=== PATIENT | female | born 2000 | race Caucasian/White ===

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

== ENCOUNTER 2019-01-13 18:13 | Inpatient (IN) | payer MEDICAID ==
--- NOTE | 2019-01-13 18:27 | EDM.PDOC ---
ED HPI GENERAL MEDICAL PROBLEM - General Chief Complaint: Abdominal Pain Stated Complaint: PANCREATITIS SYMPTOMS Time Seen by Provider: 01/13/19 18:25 Source of Information: Reports: Patient History Limitations: Reports: No Limitations - History of Present Illness INITIAL COMMENTS - FREE TEXT/NARRATIVE: pt does have a history of pancreatis. She feels her symptoms tonight are similar. Onset: Other (pt did do some drinking last nite-- wine coolers and today she is very ill. ) Duration: Hour(s): Location: Reports: Abdomen Associated Symptoms: Reports: Loss of Appetite, Nausea/Vomiting, Other (pain in epigastric area. 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 ) HEENT: Reports: No Symptoms Respiratory: Reports: No Symptoms Cardiovascular: Reports: No Symptoms Endocrine: Reports: No Symptoms GI/Abdominal: Reports: Abdominal Pain, Decreased Appetite, Nausea : Reports: No Symptoms Musculoskeletal: Reports: No Symptoms Skin: Reports: No Symptoms Neurological: Reports: No Symptoms ED EXAM, GI/ABD - Physical Exam Exam: See Below Text/Narrative:: Pt arrived with mid abdomanal pain. She has recently been hospitalized twice for pancreatitis. She does admit to doing some drinking last nite. She does seem reluctant to admit to how much she is drinking. Exam Limited By: No Limitations General Appearance: Alert, Anxious, Moderate Distress, Other (pt is rating her pain at a 6. ) Ears: Normal TMs Nose: Normal Inspection Throat/Mouth: Normal Inspection Head: Atraumatic Neck: Normal Inspection Respiratory/Chest: No Respiratory Distress Cardiovascular: Regular Rate, Rhythm GI/Abdominal Exam: Other ( severe mid abdomanal pain. She is tender to palpate in the mid abdoman. ) (Female) Exam: Deferred Rectal (Female) Exam: Deferred Back Exam: Normal Inspection Extremities: Normal Inspection Neurological: Alert, Oriented, Normal Cognition Psychiatric: Normal Affect Course - Vital Signs Last Recorded V/S: Last Vital Signs Temp 36.1 C 01/13/19 18:23 Pulse 77 01/13/19 18:23 Resp 16 01/13/19 18:23 BP 128/72 01/13/19 18:23 Pulse Ox 97 01/13/19 18:23 - Orders/Labs/Meds Orders: Active Orders 24 hr Category Date Time Status Abdomen Ltd [US] Stat Exams 01/13/19 19:02 Ordered UA W/MICROSCOPIC [URIN] Urgent Lab 01/13/19 18:25 Ordered Sodium Chloride 0.9% [Normal Saline] 1,000 ml Med 01/13/19 18:45 Active IV ASDIRECTED Medication Orders Sodium Chloride (Normal Saline) 1,000 mls @ 999 mls/hr IV ASDIRECTED LUCIA Last Admin: 01/13/19 19:01 Dose: 999 mls/hr Labs: Laboratory Tests 01/13/19 01/13/19 01/13/19 Range/Units 18:30 18:30 18:30 WBC 10.4 (4.5-11.0) K/uL RBC 4.23 (3.30-5.50) M/uL Hgb 12.8 (12.0-15.0) g/dL Hct 39.0 (36.0-48.0) % MCV 92 (80-98) fL MCH 30 (27-31) pg MCHC 33 (32-36) % Plt Count 341 (150-400) K/uL Neut % (Auto) 69 H (36-66) % Lymph % (Auto) 21 L (24-44) % [place] % (Auto) 8 H (2-6) % Eos % (Auto) 2 (2-4) % Baso % (Auto) 0 (0-1) % Sodium 140 (140-148) mmol/L Potassium 3.8 (3.6-5.2) mmol/L Chloride 104 (100-108) mmol/L Carbon Dioxide 27 (21-32) mmol/L Anion Gap 9.5 (5.0-14.0) mmol/L BUN 6 L (7-18) mg/dL Creatinine 0.7 (0.6-1.0) mg/dL Est Cr Clr Drug Dosing 121.01 mL/min Estimated GFR (MDRD) > 60 (>60) Glucose 96 (74-106) mg/dL Calcium 8.9 (8.5-10.1) mg/dL Total Bilirubin 0.4 D (0.2-1.0) mg/dL AST 37 (15-37) U/L ALT 54 (12-78) U/L Alkaline Phosphatase 62 (46-116) U/L Total Protein 7.3 (6.4-8.2) g/dL Albumin 3.8 (3.4-5.0) g/dL Globulin 3.5 (2.3-3.5) g/dL Albumin/Globulin Ratio 1.1 L (1.2-2.2) Triglycerides (15-150) mg/dL Amylase (25-115) U/L Lipase 8795 H (73-393) U/L Ethyl Alcohol mg/dL 01/13/19 01/13/19 01/13/19 Range/Units 18:30 18:36 18:43 WBC (4.5-11.0) K/uL RBC (3.30-5.50) M/uL Hgb (12.0-15.0) g/dL Hct (36.0-48.0) % MCV (80-98) fL MCH (27-31) pg MCHC (32-36) % Plt Count (150-400) K/uL Neut % (Auto) (36-66) % Lymph % (Auto) (24-44) % [place] % (Auto) (2-6) % Eos % (Auto) (2-4) % Baso % (Auto) (0-1) % Sodium (140-148) mmol/L Potassium (3.6-5.2) mmol/L Chloride (100-108) mmol/L Carbon Dioxide (21-32) mmol/L Anion Gap (5.0-14.0) mmol/L BUN (7-18) mg/dL Creatinine (0.6-1.0) mg/dL Est Cr Clr Drug Dosing mL/min Estimated GFR (MDRD) (>60) Glucose (74-106) mg/dL Calcium (8.5-10.1) mg/dL Total Bilirubin (0.2-1.0) mg/dL AST (15-37) U/L ALT (12-78) U/L Alkaline Phosphatase (46-116) U/L Total Protein (6.4-8.2) g/dL Albumin (3.4-5.0) g/dL Globulin (2.3-3.5) g/dL Albumin/Globulin Ratio (1.2-2.2) Triglycerides 101 (15-150) mg/dL Amylase 510 H (25-115) U/L Lipase (73-393) U/L Ethyl Alcohol < 3 mg/dL Meds: Medications Generic Name Dose Route Start Last Admin Trade Name Freq PRN Reason Stop Dose Admin Sodium Chloride 1,000 mls @ 999 mls/hr 01/13/19 18:45 01/13/19 19:01 Normal Saline IV 999 mls/hr ASDIRECTED LUCIA Administration Discontinued Medications Generic Name Dose Route Start Last Admin Trade Name Freq PRN Reason Stop Dose Admin Ondansetron HCl 4 mg 01/13/19 18:44 01/13/19 19:01 Zofran IVPUSH 01/13/19 18:45 4 mg ONETIME ONE Administration - Re-Assessments/Exams Free Text/Narrative Re-Assessment/Exam: 01/13/19 19:08 pt has a elevated lipase and amylase. She has normal triglycerides. She had a cat scan of the abdoman recently wich did not show gb disease. Will obtain a US of the abdoman. Departure - Departure Time of Disposition: 19:10 Disposition: Admitted As Inpatient 65 Condition: Fair Clinical Impression: Dehydration Pancreatitis Qualifiers: Chronicity: acute Pancreatitis type: drug induced Acute pancreatitis complication: unspecified Qualified Code(s): K85.30 - Drug induced acute pancreatitis without necrosis or infection - Discharge Information Referrals: Harper De La Rosa DO [Primary Care Provider] - Forms: ED Department Discharge Care Plan Goals: admit to [facility] - My Orders Last 24 Hours: My Active Orders 01/13/19 18:25 UA W/MICROSCOPIC [URIN] Urgent 01/13/19 18:45 Sodium Chloride 0.9% [Normal Saline] 1,000 ml IV ASDIRECTED 01/13/19 19:02 Abdomen Ltd [US] Stat - Assessment/Plan Last 24 Hours: My Active Orders 01/13/19 18:25 UA W/MICROSCOPIC [URIN] Urgent 01/13/19 18:45 Sodium Chloride 0.9% [Normal Saline] 1,000 ml IV ASDIRECTED 01/13/19 19:02 Abdomen Ltd [US] Stat
[2019-01-13] MEDS ORDERED: Ondansetron 4 MG/2 ML SDV IVPUSH ONE (18:44)
[2019-01-13] MEDS ORDERED: Sodium Chloride 0.9% 1,000 ML IV SCH ×2 (18:45→20:04)
--- NOTE | 2019-01-13 19:55 | PCM.HP.2 ---
H&P History of Present Illness - General Date of Service: 01/13/19 Admit Problem/Dx: Admission Diagnosis/Problem Admission Diagnosis/Problem Acute pancreatitis Source of Information: Patient, Family (Boyfriend) History Limitations: Reports: No Limitations - History of Present Illness Initial Comments - Free Text/Narative: Chief complaint: abdominal pain with nausea and vomiting This is a 18 year old female present to the ER for evaluation of symptoms. She reports yesterday drank 6 Hard [place] Lemonades, otherwise reports hadn't drank in a few months. Smokes THC, denies other drug use. She had a normal day, ate supper this evening, can't remember what she ate, then at 6 pm developed a sharp ache in upper abdomen with nausea and vomiting. denies fever or chills. Symptoms similar to last pancreatitis. Onset of Symptoms: Reports: Sudden Symptom Onset Date: 01/13/19 Symptom Onset Time: 18:00 Duration of Symptoms: Reports: Hour(s):, Constant Location: Reports: Abdomen Quality: Reports: Ache, Same as Previous Episode, Sharp Severity: Severe Improves with: Reports: None Worsens with: Reports: None Context: Reports: Other (hx of admission on 12-18-2018 for acute pancreatits Lipase 45,193 discharge Lipase 731) Associated Symptoms: Reports: Loss of Appetite, Nausea/Vomiting Abdomen Pain Score (Numeric/FACES): 6 - Related Data Allergies/Adverse Reactions: Allergies Allergy/AdvReac Type Severity Reaction Status Date / Time No Known Allergies Allergy Verified 01/13/19 18:27 Home Medications: Home Meds Citalopram Hydrobromide [Celexa] 40 mg PO DAILY 12/18/18 [History] Spironolactone [Aldactone] 50 mg PO BID 12/18/18 [History] metFORMIN [Glucophage XR] 500 mg PO DAILY 12/18/18 [History] Acetaminophen [Tylenol] 1,000 mg PO Q4H PRN 12/22/18 [History] Past Medical History HEENT History: Reports: Impaired Vision Gastrointestinal History: Reports: Pancreatitis PARTS MANAGER History: Reports: Polycystic Ovaries Psychiatric History: Reports: Anxiety Dermatologic History: Reports: Psoriasis - Past Surgical History Head Surgeries/Procedures: Reports: None HEENT Surgical History: Reports: None Dermatological Surgical History: Reports: None Social & Family History - Tobacco Use Smoking Status *Q: Never Smoker - Caffeine Use Caffeine Use: Reports: None - Recreational Drug Use Recreational Drug Use: Yes Recreational Drug Type: Reports: Marijuana/Hashish - Living Situation & Occupation Living situation: Reports: with Significant Other Occupation: Unemployed (lives with Boyfriend between [place] and [place]. Not working, no children.) H&P Review of Systems - Review of Systems: Review Of Systems: See Below General: Reports: Decreased Appetite HEENT: Reports: Glasses Pulmonary: Reports: No Symptoms Cardiovascular: Reports: No Symptoms Gastrointestinal: Reports: Abdominal Pain, Anorexia, Nausea, Vomiting Genitourinary: Reports: No Symptoms Musculoskeletal: Reports: No Symptoms Skin: Reports: No Symptoms Psychiatric: Reports: No Symptoms Neurological: Reports: No Symptoms Hematologic/Lymphatic: Reports: No Symptoms Immunologic: Reports: No Symptoms Exam - Exam Exam: See Below - Vital Signs Vital Signs: Last Vital Signs Temp 36.1 C 01/13/19 19:05 Pulse 86 01/13/19 19:05 Resp 18 01/13/19 19:05 BP 115/77 01/13/19 19:05 Pulse Ox 97 01/13/19 19:05 Weight: 109.6 kg - Exam Quality Assessment: DVT Prophylaxis General: Alert, Oriented, Cooperative, Sedated HEENT: PERRLA, Hearing Intact, Mucosa Moist & [place], Nares Patent, Normal Nasal Septum, Posterior Pharynx Clear, Conjunctiva Clear, EOMI, EACs Clear, TMs Clear Neck: Supple, Trachea Midline, 2 Lungs: Clear to Auscultation, Normal Respiratory Effort Cardiovascular: Regular Rate, Regular Rhythm GI/Abdominal Exam: Normal Bowel Sounds, Soft, Non-Tender, No Organomegaly, No Distention, No Abnormal Bruit, No Mass, Pelvis Stable (Female) Exam: Deferred Rectal (Female) Exam: Deferred Back Exam: Normal Inspection, Full Range of Motion, NT Extremities: Normal Inspection, Normal Range of Motion, Non-Tender, No Pedal Edema, Normal Capillary Refill Skin: Warm, Dry, Intact Neurological: Cranial Nerves Intact, Reflexes Equal Bilateral Neuro Extensive - Mental Status: Alert, Oriented x3, Normal Mood/Affect, Normal Cognition Neuro Extensive - Motor, Sensory, Reflexes: CN II-XII Intact, Normal Gait, Normal Reflexes Psychiatric: Alert, Normal Affect, Normal Mood - Patient Data Lab Results Last 24 hrs: Laboratory Results - last 24 hr 01/13/19 01/13/19 01/13/19 Range/Units 18:30 18:30 18:30 WBC 10.4 (4.5-11.0) K/uL RBC 4.23 (3.30-5.50) M/uL Hgb 12.8 (12.0-15.0) g/dL Hct 39.0 (36.0-48.0) % MCV 92 (80-98) fL MCH 30 (27-31) pg MCHC 33 (32-36) % Plt Count 341 (150-400) K/uL Neut % (Auto) 69 H (36-66) % Lymph % (Auto) 21 L (24-44) % Mercer % (Auto) 8 H (2-6) % Eos % (Auto) 2 (2-4) % Baso % (Auto) 0 (0-1) % Sodium 140 (140-148) mmol/L Potassium 3.8 (3.6-5.2) mmol/L Chloride 104 (100-108) mmol/L Carbon Dioxide 27 (21-32) mmol/L Anion Gap 9.5 (5.0-14.0) mmol/L BUN 6 L (7-18) mg/dL Creatinine 0.7 (0.6-1.0) mg/dL Est Cr Clr Drug Dosing 121.01 mL/min Estimated GFR (MDRD) > 60 (>60) Glucose 96 (74-106) mg/dL Calcium 8.9 (8.5-10.1) mg/dL Total Bilirubin 0.4 D (0.2-1.0) mg/dL AST 37 (15-37) U/L ALT 54 (12-78) U/L Alkaline Phosphatase 62 (46-116) U/L Total Protein 7.3 (6.4-8.2) g/dL Albumin 3.8 (3.4-5.0) g/dL Globulin 3.5 (2.3-3.5) g/dL Albumin/Globulin Ratio 1.1 L (1.2-2.2) Triglycerides (15-150) mg/dL Amylase (25-115) U/L Lipase 8795 H (73-393) U/L Ethyl Alcohol mg/dL 01/13/19 01/13/19 01/13/19 Range/Units 18:30 18:36 18:43 WBC (4.5-11.0) K/uL RBC (3.30-5.50) M/uL Hgb (12.0-15.0) g/dL Hct (36.0-48.0) % MCV (80-98) fL MCH (27-31) pg MCHC (32-36) % Plt Count (150-400) K/uL Neut % (Auto) (36-66) % Lymph % (Auto) (24-44) % Mercer % (Auto) (2-6) % Eos % (Auto) (2-4) % Baso % (Auto) (0-1) % Sodium (140-148) mmol/L Potassium (3.6-5.2) mmol/L Chloride (100-108) mmol/L Carbon Dioxide (21-32) mmol/L Anion Gap (5.0-14.0) mmol/L BUN (7-18) mg/dL Creatinine (0.6-1.0) mg/dL Est Cr Clr Drug Dosing mL/min Estimated GFR (MDRD) (>60) Glucose (74-106) mg/dL Calcium (8.5-10.1) mg/dL Total Bilirubin (0.2-1.0) mg/dL AST (15-37) U/L ALT (12-78) U/L Alkaline Phosphatase (46-116) U/L Total Protein (6.4-8.2) g/dL Albumin (3.4-5.0) g/dL Globulin (2.3-3.5) g/dL Albumin/Globulin Ratio (1.2-2.2) Triglycerides 101 (15-150) mg/dL Amylase 510 H (25-115) U/L Lipase (73-393) U/L Ethyl Alcohol < 3 mg/dL Result Diagrams: 01/13/19 18:30 01/13/19 18:30 - Problem List (1) Acute pancreatitis without infection or necrosis SNOMED Code(s): 514579956 ICD Code: K85.90 - ACUTE PANCREATITIS WITHOUT NECROSIS OR INFECTION, UNSP Status: Acute Priority: High Current Visit: Yes Qualifiers: Pancreatitis type: drug induced Qualified Code(s): K85.30 - Drug induced acute pancreatitis without necrosis or infection (2) Depression SNOMED Code(s): 22261839 ICD Code: F32.9 - MAJOR DEPRESSIVE DISORDER, SINGLE EPISODE, UNSPECIFIED Status: Acute Priority: Low Current Visit: No Qualifiers: Depression Type: major depressive disorder Major depression recurrence: unspecified whether recurrent Problem List Initiated/Reviewed/Updated: Yes Orders Last 24hrs: Active Orders 24 hr Category Date Time Status Patient Status Manage Transfer [TRANSFER] Routine ADT 01/13/19 19:34 Active Abdomen Ltd [US] Stat Exams 01/13/19 19:02 Ordered DRUG SCREEN, URINE [URCHEM] Stat Lab 01/13/19 19:20 Ordered HCG QUALITATIVE,URINE [URCHEM] Stat Lab 01/13/19 19:20 Ordered UA W/MICROSCOPIC [URIN] Urgent Lab 01/13/19 18:25 Ordered Sodium Chloride 0.9% [Normal Saline] 1,000 ml Med 01/13/19 18:45 Active IV ASDIRECTED Resuscitation Status Routine Resus Stat 01/13/19 19:35 Ordered Medication Orders Sodium Chloride (Normal Saline) 1,000 mls @ 999 mls/hr IV ASDIRECTED LUCIA Last Admin: 01/13/19 19:01 Dose: 999 mls/hr Assessment/Plan Comment:: ASSESSMENT AND PLAN - PANCREATITIS- Likely secondary to recent alcohol use, has stopped control since last hospital admission. Labs CBC wbc 10.4, hemoglobin 12.8, hemocrit 39.0 , Chemistries normal range, Amylase 510, Lipase 8,795. Imaging - ultrasound abdomen - impression resolution of previously seen acute pancreatitis with normal appearance of the pancreatic head and body. No sign of biliary ductal dilatation, cholelithiasis or acute cholecystitis. Nonspecific fluid-filled structure located to the right of midline measuring 7.4 x 3.1 x 6.1 cm, not clearly evident on the previous CT. It is possible that is is a pancreatic pseudocyst. Will plan to admit for further care and treatment. Vital signs 36.1- 86-18 b/p 115/77 o2 sat 97% room air. Ms. Chowdhury and her Boyfriend agree with plan of care. -IV fluids Normal Saline 125ml/hr -IV pain and nausea medications -NPO -Am Labs cbc with diff, BMP, Lipase Depression - no concerns at this time. Medication controls symptoms. -Celexa 40 mg po daily Maintenance issues - - DVT prophylaxis - enoxaparin - GI prophylaxis - PPI - Nutrition - regular - Ribera catheter - not indicated -Nicotine dependence - not required CODE STATUS - full Admission justification - This patient will be admitted for inpatient services and is medically appropriate meeting medical necessity for inpatient admission as outlined in my documentation. I reasonably expect the patient will require inpatient services that span a period time over 2 midnights. I reasonably expect this patient to be discharged or transferred within 96 hours after admission to the [facility]. Disposition - anticipate discharge home after the hospital stay Primary care physician - Dr Harper De La Rosa Hospitalist - Darinel Peace M.D. - Mortality Measure Prognosis:: Good
[2019-01-13] MEDS ORDERED: Albuterol 0.083% 2.5 MG/3 ML Neb Soln NEB PRN (20:04)
[2019-01-13] MEDS ORDERED: Docusate Sodium 100 MG Cap PO PRN (20:04)
[2019-01-13] MEDS ORDERED: Ondansetron 4 MG/2 ML SDV IV PRN (20:04)
[2019-01-13] MEDS ORDERED: LORazepam 2 MG/ML SDV IV PRN (20:04)
--- NOTE | 2019-01-13 21:18 | CRLUS ---
INDICATION: Pancreatitis COMPARISON: CT of the abdomen from 12/18/2018 TECHNIQUE: Ultrasound examination of the right upper quadrant was performed. FINDINGS: There is normal appearance of the gallbladder, with no sign of cholelithiasis or acute cholecystitis. There is no sign of gallbladder wall thickening or pericholecystic fluid. A sonographic [place] sign was not present. The common bile duct is top normal in caliber at 6 mm. The pancreatic head and body were examined, and these are normal in appearance. The previously seen fluid around the pancreatic head and body is no longer evident, consistent with resolution of acute pancreatitis. The abdominal aorta is normal in caliber. The liver shows no sign of mass or contour abnormality, and there is no sign of ascites. The right kidney is unremarkable. To the right of midline, there is a tubular, anechoic structure without increased color Doppler flow or peristalsis. This measures 7.4 x 3.1 x 6.1 centimeters. No similar appearing structure seen on the previous CT. This could be a pancreatic pseudocyst. IMPRESSION: Resolution of previously seen acute pancreatitis, with normal appearance of the pancreatic head and body. No sign of biliary ductal dilatation, cholelithiasis, or acute cholecystitis. Nonspecific fluid-filled structure located to the right of midline measuring 7.4 x 3.1 x 6.1 centimeters, not clearly evident on the previous CT. It is possible that this is a pancreatic pseudocyst. Dictated by Johny Dominique MD @ Jan 13 2019 9:11PM Signed by Dr. Johny Dominique @ Jan 13 2019 9:17PM
[2019-01-13] MEDS: HYDROmorphone 1 MG/ML Syringe IVPUSH PRN (23:10)
[2019-01-14] MEDS: HYDROmorphone 1 MG/ML Syringe IVPUSH PRN ×3 (05:18→23:19)
[2019-01-14] MEDS: Enoxaparin 40 MG/0.4 ML Syringe SUBCUT SCH (09:57)
[2019-01-14] MEDS: Citalopram 20 MG Tab PO SCH (09:57)
[2019-01-14] MEDS ORDERED: Sodium Chloride 0.9% 10 ML Syringe FLUSH ONE ×2 (13:14→13:15)
[2019-01-14] MEDS ORDERED: Sodium Chloride 0.9% 100 ML IV SCH (13:15)
[2019-01-14] MEDS ORDERED: Iopamidol 612 MG/ML 100 ML Bottle IV SCH ×2 (13:15)
--- NOTE | 2019-01-14 13:18 | PCM.PN ---
- General Info Date of Service: 01/14/19 Subjective Update: Ms. Chowdhury is a 18-year-old woman who was admitted through the emergency department last night with nausea and abdominal pain secondary to recurrent pancreatitis. She was hospitalized at this facility earlier this month with acute pancreatitis, possible etiology was thought be secondary to her control medications. She had felt well since that admission when she developed acute onset of pain and nausea yesterday. She has not taken control medication since her last admission. She did have 6 beers on the evening prior to admission. She feels significantly improved this morning abdominal pain has resolved except to palpation and she is had no further nausea or vomiting. Lipase level was significantly improved this morning but remains elevated from normal range. Functional Status: Reports: Tolerating Diet, Ambulating, Urinating - Review of Systems General: Denies: Fever, Chills Pulmonary: Reports: No Symptoms Cardiovascular: Reports: No Symptoms Gastrointestinal: Reports: No Symptoms - Patient Data Vitals - Most Recent: Last Vital Signs Temp 97.4 F 01/14/19 08:38 Pulse 87 01/14/19 08:38 Resp 16 01/14/19 08:38 BP 105/60 01/14/19 08:38 Pulse Ox 96 01/14/19 08:38 Weight - Most Recent: 241 lb I&O - Last 24 Hours: Intake & Output 01/13/19 01/14/19 01/14/19 22:59 06:59 14:59 Intake Total 949 Output Total 350 Balance -350 949 Lab Results Last 24 Hours: Laboratory Results - last 24 hr 01/13/19 01/13/19 01/13/19 Range/Units 18:30 18:30 18:30 WBC 10.4 (4.5-11.0) K/uL RBC 4.23 (3.30-5.50) M/uL Hgb 12.8 (12.0-15.0) g/dL Hct 39.0 (36.0-48.0) % MCV 92 (80-98) fL MCH 30 (27-31) pg MCHC 33 (32-36) % Plt Count 341 (150-400) K/uL Neut % (Auto) 69 H (36-66) % Lymph % (Auto) 21 L (24-44) % Mercer % (Auto) 8 H (2-6) % Eos % (Auto) 2 (2-4) % Baso % (Auto) 0 (0-1) % Sodium 140 (140-148) mmol/L Potassium 3.8 (3.6-5.2) mmol/L Chloride 104 (100-108) mmol/L Carbon Dioxide 27 (21-32) mmol/L Anion Gap 9.5 (5.0-14.0) mmol/L BUN 6 L (7-18) mg/dL Creatinine 0.7 (0.6-1.0) mg/dL Est Cr Clr Drug Dosing 121.01 mL/min Estimated GFR (MDRD) > 60 (>60) Glucose 96 (74-106) mg/dL Calcium 8.9 (8.5-10.1) mg/dL Total Bilirubin 0.4 D (0.2-1.0) mg/dL AST 37 (15-37) U/L ALT 54 (12-78) U/L Alkaline Phosphatase 62 (46-116) U/L Total Protein 7.3 (6.4-8.2) g/dL Albumin 3.8 (3.4-5.0) g/dL Globulin 3.5 (2.3-3.5) g/dL Albumin/Globulin Ratio 1.1 L (1.2-2.2) Triglycerides (15-150) mg/dL Amylase (25-115) U/L Lipase 8795 H (73-393) U/L Urine Color (YELLOW) Urine Appearance (CLEAR) Urine pH (5.0-8.0) Ur Specific [place] (1.008-1.030) Urine Protein (NEGATIVE) mg/dL Urine Glucose (UA) (NEGATIVE) mg/dL Urine Ketones (NEGATIVE) mg/dL Urine Occult Blood (NEGATIVE) Urine Nitrite (NEGATIVE) Urine Bilirubin (NEGATIVE) Urine Urobilinogen (0.2-1.0) EU/dL Ur Leukocyte Esterase (NEGATIVE) Urine RBC (0-5) Urine WBC (0-5) Ur Epithelial Cells Amorphous Sediment Urine Bacteria Urine Mucus Urine HCG, Qual Urine Opiates Screen (NEGATIVE) Ur Oxycodone Screen (NEGATIVE) Urine Methadone Screen (NEGATIVE) Ur Propoxyphene Screen (NEGATIVE) Ur Barbiturates Screen (NEGATIVE) Ur Tricyclics Screen (NEGATIVE) Ur Phencyclidine Scrn (NEGATIVE) Ur Amphetamine Screen (NEGATIVE) U Methamphetamines Scrn (NEGATIVE) Urine MDMA Screen (NEGATIVE) U Benzodiazepines Scrn (NEGATIVE) U Cocaine Metab Screen (NEGATIVE) U Marijuana (THC) Screen (NEGATIVE) Ethyl Alcohol mg/dL 01/13/19 01/13/19 01/13/19 Range/Units 18:30 18:36 18:43 WBC (4.5-11.0) K/uL RBC (3.30-5.50) M/uL Hgb (12.0-15.0) g/dL Hct (36.0-48.0) % MCV (80-98) fL MCH (27-31) pg MCHC (32-36) % Plt Count (150-400) K/uL Neut % (Auto) (36-66) % Lymph % (Auto) (24-44) % Mercer % (Auto) (2-6) % Eos % (Auto) (2-4) % Baso % (Auto) (0-1) % Sodium (140-148) mmol/L Potassium (3.6-5.2) mmol/L Chloride (100-108) mmol/L Carbon Dioxide (21-32) mmol/L Anion Gap (5.0-14.0) mmol/L BUN (7-18) mg/dL Creatinine (0.6-1.0) mg/dL Est Cr Clr Drug Dosing mL/min Estimated GFR (MDRD) (>60) Glucose (74-106) mg/dL Calcium (8.5-10.1) mg/dL Total Bilirubin (0.2-1.0) mg/dL AST (15-37) U/L ALT (12-78) U/L Alkaline Phosphatase (46-116) U/L Total Protein (6.4-8.2) g/dL Albumin (3.4-5.0) g/dL Globulin (2.3-3.5) g/dL Albumin/Globulin Ratio (1.2-2.2) Triglycerides 101 (15-150) mg/dL Amylase 510 H (25-115) U/L Lipase (73-393) U/L Urine Color (YELLOW) Urine Appearance (CLEAR) Urine pH (5.0-8.0) Ur Specific [place] (1.008-1.030) Urine Protein (NEGATIVE) mg/dL Urine Glucose (UA) (NEGATIVE) mg/dL Urine Ketones (NEGATIVE) mg/dL Urine Occult Blood (NEGATIVE) Urine Nitrite (NEGATIVE) Urine Bilirubin (NEGATIVE) Urine Urobilinogen (0.2-1.0) EU/dL Ur Leukocyte Esterase (NEGATIVE) Urine RBC (0-5) Urine WBC (0-5) Ur Epithelial Cells Amorphous Sediment Urine Bacteria Urine Mucus Urine HCG, Qual Urine Opiates Screen (NEGATIVE) Ur Oxycodone Screen (NEGATIVE) Urine Methadone Screen (NEGATIVE) Ur Propoxyphene Screen (NEGATIVE) Ur Barbiturates Screen (NEGATIVE) Ur Tricyclics Screen (NEGATIVE) Ur Phencyclidine Scrn (NEGATIVE) Ur Amphetamine Screen (NEGATIVE) U Methamphetamines Scrn (NEGATIVE) Urine MDMA Screen (NEGATIVE) U Benzodiazepines Scrn (NEGATIVE) U Cocaine Metab Screen (NEGATIVE) U Marijuana (THC) Screen (NEGATIVE) Ethyl Alcohol < 3 mg/dL 01/13/19 01/13/19 01/13/19 Range/Units 22:40 22:40 22:40 WBC (4.5-11.0) K/uL RBC (3.30-5.50) M/uL Hgb (12.0-15.0) g/dL Hct (36.0-48.0) % MCV (80-98) fL MCH (27-31) pg MCHC (32-36) % Plt Count (150-400) K/uL Neut % (Auto) (36-66) % Lymph % (Auto) (24-44) % Mercer % (Auto) (2-6) % Eos % (Auto) (2-4) % Baso % (Auto) (0-1) % Sodium (140-148) mmol/L Potassium (3.6-5.2) mmol/L Chloride (100-108) mmol/L Carbon Dioxide (21-32) mmol/L Anion Gap (5.0-14.0) mmol/L BUN (7-18) mg/dL Creatinine (0.6-1.0) mg/dL Est Cr Clr Drug Dosing mL/min Estimated GFR (MDRD) (>60) Glucose (74-106) mg/dL Calcium (8.5-10.1) mg/dL Total Bilirubin (0.2-1.0) mg/dL AST (15-37) U/L ALT (12-78) U/L Alkaline Phosphatase (46-116) U/L Total Protein (6.4-8.2) g/dL Albumin (3.4-5.0) g/dL Globulin (2.3-3.5) g/dL Albumin/Globulin Ratio (1.2-2.2) Triglycerides (15-150) mg/dL Amylase (25-115) U/L Lipase (73-393) U/L Urine Color Yellow (YELLOW) Urine Appearance Clear (CLEAR) Urine pH 7.0 (5.0-8.0) Ur Specific [place] 1.015 (1.008-1.030) Urine Protein Negative (NEGATIVE) mg/dL Urine Glucose (UA) Negative (NEGATIVE) mg/dL Urine Ketones Negative (NEGATIVE) mg/dL Urine Occult Blood Negative (NEGATIVE) Urine Nitrite Negative (NEGATIVE) Urine Bilirubin Negative (NEGATIVE) Urine Urobilinogen 1.0 (0.2-1.0) EU/dL Ur Leukocyte Esterase Trace H (NEGATIVE) Urine RBC 0-5 (0-5) Urine WBC 0-5 (0-5) Ur Epithelial Cells Few Amorphous Sediment Not seen Urine Bacteria Few Urine Mucus Not seen Urine HCG, Qual Negative Urine Opiates Screen Negative (NEGATIVE) Ur Oxycodone Screen Negative (NEGATIVE) Urine Methadone Screen Negative (NEGATIVE) Ur Propoxyphene Screen Negative (NEGATIVE) Ur Barbiturates Screen Negative (NEGATIVE) Ur Tricyclics Screen Negative (NEGATIVE) Ur Phencyclidine Scrn Negative (NEGATIVE) Ur Amphetamine Screen Negative (NEGATIVE) U Methamphetamines Scrn Negative (NEGATIVE) Urine MDMA Screen Negative (NEGATIVE) U Benzodiazepines Scrn Negative (NEGATIVE) U Cocaine Metab Screen Negative (NEGATIVE) U Marijuana (THC) Screen Presumptive positive H (NEGATIVE) Ethyl Alcohol mg/dL 01/14/19 01/14/19 01/14/19 Range/Units 05:30 05:30 09:02 WBC 8.8 (4.5-11.0) K/uL RBC 3.94 (3.30-5.50) M/uL Hgb 11.8 L (12.0-15.0) g/dL Hct 37.5 (36.0-48.0) % MCV 95 (80-98) fL MCH 30 (27-31) pg MCHC 32 (32-36) % Plt Count 312 (150-400) K/uL Neut % (Auto) 60 (36-66) % Lymph % (Auto) 29 (24-44) % Mercer % (Auto) 9 H (2-6) % Eos % (Auto) 2 (2-4) % Baso % (Auto) 0 (0-1) % Sodium 143 (140-148) mmol/L Potassium 3.8 (3.6-5.2) mmol/L Chloride 108 (100-108) mmol/L Carbon Dioxide 27 (21-32) mmol/L Anion Gap 8.0 (5.0-14.0) mmol/L BUN 4 L (7-18) mg/dL Creatinine 0.6 (0.6-1.0) mg/dL Est Cr Clr Drug Dosing 135.70 mL/min Estimated GFR (MDRD) > 60 (>60) Glucose 80 (74-106) mg/dL Calcium 8.3 L (8.5-10.1) mg/dL Total Bilirubin (0.2-1.0) mg/dL AST (15-37) U/L ALT (12-78) U/L Alkaline Phosphatase (46-116) U/L Total Protein (6.4-8.2) g/dL Albumin (3.4-5.0) g/dL Globulin (2.3-3.5) g/dL Albumin/Globulin Ratio (1.2-2.2) Triglycerides (15-150) mg/dL Amylase 395 H (25-115) U/L Lipase 3322 H (73-393) U/L Urine Color (YELLOW) Urine Appearance (CLEAR) Urine pH (5.0-8.0) Ur Specific [place] (1.008-1.030) Urine Protein (NEGATIVE) mg/dL Urine Glucose (UA) (NEGATIVE) mg/dL Urine Ketones (NEGATIVE) mg/dL Urine Occult Blood (NEGATIVE) Urine Nitrite (NEGATIVE) Urine Bilirubin (NEGATIVE) Urine Urobilinogen (0.2-1.0) EU/dL Ur Leukocyte Esterase (NEGATIVE) Urine RBC (0-5) Urine WBC (0-5) Ur Epithelial Cells Amorphous Sediment Urine Bacteria Urine Mucus Urine HCG, Qual Urine Opiates Screen (NEGATIVE) Ur Oxycodone Screen (NEGATIVE) Urine Methadone Screen (NEGATIVE) Ur Propoxyphene Screen (NEGATIVE) Ur Barbiturates Screen (NEGATIVE) Ur Tricyclics Screen (NEGATIVE) Ur Phencyclidine Scrn (NEGATIVE) Ur Amphetamine Screen (NEGATIVE) U Methamphetamines Scrn (NEGATIVE) Urine MDMA Screen (NEGATIVE) U Benzodiazepines Scrn (NEGATIVE) U Cocaine Metab Screen (NEGATIVE) U Marijuana (THC) Screen (NEGATIVE) Ethyl Alcohol mg/dL Med Orders - Current: Current Medications Albuterol (Proventil Neb Soln) 2.5 mg NEB Q4H PRN PRN Reason: Shortness Of Breath/wheezing Citalopram Hydrobromide (Celexa) 40 mg PO DAILY [facility] Last Admin: 01/14/19 09:57 Dose: 40 mg Docusate Sodium (Colace) 100 mg PO BID PRN PRN Reason: Constipation Enoxaparin Sodium (Lovenox) 40 mg SUBCUT DAILY [facility] Last Admin: 01/14/19 09:57 Dose: 40 mg Hydromorphone HCl (Dilaudid) 1 mg IVPUSH Q2H PRN PRN Reason: Abdominal Pain Last Admin: 01/14/19 05:18 Dose: 1 mg Sodium Chloride (Normal Saline) 100 mls @ 3 mls/sec IV ASDIRECTED LUCIA Sodium Chloride (Normal Saline) 85 mls @ 3 mls/sec IV ASDIRECTED LUCIA Iopamidol (Isovue-300 (61%)) 100 ml IV . DIRECTED LUCIA Iopamidol (Isovue-300 (61%)) 100 ml IV . DIRECTED LUCIA Lorazepam (Ativan) 1 mg IV Q6H PRN PRN Reason: Nausea/Vomiting Ondansetron HCl (Zofran) 4 mg IV Q4H PRN PRN Reason: Nausea/Vomiting Sodium Chloride (Saline Flush) 10 ml FLUSH ONETIME ONE Stop: 01/14/19 13:15 Sodium Chloride (Saline Flush) 10 ml FLUSH ONETIME ONE Stop: 01/14/19 13:16 Discontinued Medications Sodium Chloride (Normal Saline) 1,000 mls @ 999 mls/hr IV ASDIRECTED LUCIA Last Admin: 01/13/19 19:01 Dose: 999 mls/hr Sodium Chloride (Normal Saline) 1,000 mls @ 125 mls/hr IV ASDIRECTED LUCIA Last Admin: 01/14/19 05:06 Dose: 125 mls/hr Ondansetron HCl (Zofran) 4 mg IVPUSH ONETIME ONE Stop: 01/13/19 18:45 Last Admin: 01/13/19 19:01 Dose: 4 mg - Exam General: Alert, Oriented, Cooperative, No Acute Distress Lungs: Clear to Auscultation, Normal Respiratory Effort Cardiovascular: Regular Rate, Regular Rhythm, No Murmurs GI/Abdominal Exam: Soft, No Organomegaly, Tender. No: Distended, Guarding, Rigid, Rebound Extremities: Non-Tender, No Pedal Edema - Problem List Review Problem List Initiated/Reviewed/Updated: Yes - My Orders Last 24 Hours: My Active Orders 01/14/19 12:12 Abdomen Pelvis w Cont [CT] Stat 01/14/19 12:44 Convert IV to Saline Lock [OM.PC] Routine 01/14/19 13:14 Sodium Chloride 0.9% [Saline Flush] 10 ml FLUSH ONETIME ONE 01/14/19 13:15 Iopamidol [Isovue-300 (61%)] 100 ml IV . DIRECTED Iopamidol [Isovue-300 (61%)] 100 ml IV . DIRECTED Sodium Chloride 0.9% [Normal Saline] 100 ml IV ASDIRECTED Sodium Chloride 0.9% [Normal Saline] 85 ml IV ASDIRECTED Sodium Chloride 0.9% [Saline Flush] 10 ml FLUSH ONETIME ONE 01/14/19 Lunch Regular Diet [DIET] 01/15/19 05:00 LIPASE [CHEM] Timed - Plan Plan:: ASSESSMENT AND PLAN - PANCREATITIS- Likely secondary to recent alcohol use, has stopped control since last hospital admission. Symptomatically significantly improved since admission with good drop in lipase level. Ultrasound obtained last night shows evidence of peripancreatic fluid collection. CT scan obtained today shows developing loculation. -Regular diet -Saline lock IV -Discussed CT scan findings with gastroenterology -Outpatient follow-up with gastroenterology -IV pain and nausea medications -Repeat lipase level in a.m. Depression - no concerns at this time. Medication controls symptoms. -Celexa 40 mg po daily Maintenance issues - - DVT prophylaxis - enoxaparin - GI prophylaxis - PPI - Nutrition - regular - Ribera catheter - not indicated -Nicotine dependence - not required CODE STATUS - full Admission justification - This patient will be admitted for inpatient services and is medically appropriate meeting medical necessity for inpatient admission as outlined in my documentation. I reasonably expect the patient will require inpatient services that span a period time over 2 midnights. I reasonably expect this patient to be discharged or transferred within 96 hours after admission to the [facility] [place]. Disposition - anticipate discharge home after the hospital stay Primary care physician - Dr Harper De La Rosa Hospitalist - Darinel Peace M.D.
--- NOTE | 2019-01-14 14:08 | CRLCT ---
INDICATION: Pancreatitis, eval fluid collection noted on US INDICATION: Pancreatitis. TECHNIQUE: A CT volumetric acquisition was performed of the abdomen and pelvis during the intravenous infusion of 150 cc of Isovue-300 nonionic intravenous contrast. COMPARISON: CT abdomen pelvis dated 12/18/2018. FINDINGS: The lung bases remain clear. The patient`s liver demonstrates normal uniform enhancement with no evidence of bile duct dilatation. The spleen has uniform enhancement and there is a small accessory splenule located at the posterior inferior margin of the spleen. Since the prior exam the peripancreatic fluid has changed in appearance. The fluid stranding about the anterior margin has resolved and there has been partial loculation of fluid posteriorly which abuts the transverse portion of the duodenum. This developing loculated fluid collection measures 8.4 x 4.2 cm. There are no air bubbles within the fluid which would indicate superinfection. There is no evidence of hemorrhage or tissue necrosis within the inflamed pancreas. The kidneys and adrenal glands appear normal. There is no evidence of obstruction within the small intestine and colon. The appendix appears normal. There is trace amount of dependent fluid within the low pelvic cul de sac. Uterus and ovaries are normal size. The right ovary contains a dominant follicle. Urinary bladder appears normal. IMPRESSION: Since the prior exam the peripancreatic fluid has changed in appearance. The fluid stranding about the anterior margin has resolved and there has been partial loculation of fluid posteriorly which abuts the transverse portion of the duodenum Dictated by Gabriel Abdi MD @ 01/14/2019 2:08:17 PM Prelim Report By Dr. Gabriel Abdi @ 01/14/2019 2:08:22 PM Please note that all CT scans at this facility use dose modulation, iterative reconstruction, and/or weight-based dosing when appropriate to reduce radiation dose to as low as reasonably achievable. Dictated by: Gabrile Abdi MD @ 01/14/2019 19:02:49 (Electronically Signed)
[2019-01-15] MEDS: HYDROmorphone 1 MG/ML Syringe IVPUSH PRN ×2 (03:10→05:14)
[2019-01-15] MEDS: Citalopram 20 MG Tab PO SCH (09:22)
[2019-01-15] MEDS: Enoxaparin 40 MG/0.4 ML Syringe SUBCUT SCH (09:22)
--- NOTE | 2019-01-15 09:40 | PCM.DCSUM1 ---
Discharge Summary - Hospital Course Brief History: Ms. Grimm is a 18-year-old woman who was admitted through the emergency department with abdominal pain and nausea secondary to recurrent pancreatitis. - Discharge Data Discharge Date: 01/15/19 Discharge Disposition: Home, Self-Care 01 Condition: Good - Referral to Home Health Primary Care Physician: Harper De La Rosa DO - Discharge Diagnosis/Problem(s) (1) Pancreatic pseudocyst SNOMED Code(s): 794071519 ICD Code: K86.3 - PSEUDOCYST OF PANCREAS Status: Acute Current Visit: Yes (2) Dehydration SNOMED Code(s): 16335609 ICD Code: E86.0 - DEHYDRATION Status: Acute Current Visit: Yes (3) Pancreatitis SNOMED Code(s): 82737948 ICD Code: K85.90 - ACUTE PANCREATITIS WITHOUT NECROSIS OR INFECTION, UNSP Status: Acute Current Visit: Yes Qualifiers: Chronicity: acute Pancreatitis type: drug induced Acute pancreatitis complication: unspecified Qualified Code(s): K85.30 - Drug induced acute pancreatitis without necrosis or infection - Patient Summary/Data Hospital Course: Ms. Chowdhury is an 18-year-old woman who was admitted through the emergency department with nausea, vomiting, and supraumbilical abdominal pain, secondary to recurrent pancreatitis. She was hospitalized one month ago with similar symptoms and at that time was found to have evidence of pancreatitis with significant elevation in lipase level as well as peripancreatic inflammation and fluid seen on CT scan of the abdomen. She had experienced one prior episode of pancreatitis prior to that admission. On evaluation it was felt possible that either alcohol or control pills had contributed to the episode of pancreatitis. control pills were discontinued and she was warned against further alcohol use. She was hospitalized for a period of 4-5 days and improved during that time. Since then she has felt well until the day of admission when she noted recurrent symptoms of pain with nausea and vomiting. She had consumed approximately 6 beers on the evening prior to onset of her symptoms. On evaluation in the emergency department lipase level was elevated at 8000, ultrasound was obtained showing no evidence of gallbladder inflammation or stones within the gallbladder or ducts. There was no evidence of ductal dilatation. By the following morning her symptoms it improved significantly and her lipase level had decreased although was still elevated. CT scan of the abdomen and pelvis was obtained showing persistent peripancreatic fluid with partial loculation, no evidence of underlying necrosis or infection. White blood cell count was normal and she had no significant temperature elevations during hospitalization. By the morning of discharge symptoms totally resolved and her lipase level had normalized. CT scans were reviewed with the process design chemical engineer equipment application specialist at [facility] in [facility]. MRCP will be ordered as an outpatient and she will be scheduled for GI consult on an outpatient basis. She is again instructed to avoid all alcohol use. Activity will be as tolerated and she will resume her usual diet. She will be placed on Protonix 40 mg by mouth daily because of the potential pseudocyst. Follow-up appointment will be scheduled with primary care provider within one week. - Patient Instructions Diet: Usual Diet as Tolerated, No Alcoholic Beverages Activity: As Tolerated Other/Special Instructions: Outpaitient MRCP for eval of recurrent pancreatitis. FU appt w/ primary care provider w/in 1 wk. GI consult [facility] for eval of recurrent pancreatitis and pancreatic pseudocyst - Discharge Plan *PRESCRIPTION DRUG MONITORING PROGRAM REVIEWED*: Not Applicable *COPY OF PRESCRIPTION DRUG MONITORING REPORT IN PATIENT STEVEN: Not Applicable Prescriptions/Med Rec: Pantoprazole Sodium [Protonix] 40 mg PO DAILY #30 tablet. Home Medications: Home Meds Citalopram Hydrobromide [Celexa] 40 mg PO DAILY 12/18/18 [History] Spironolactone [Aldactone] 50 mg PO BID 12/18/18 [History] metFORMIN [Glucophage XR] 500 mg PO DAILY 12/18/18 [History] Acetaminophen [Tylenol] 1,000 mg PO Q4H PRN 12/22/18 [History] Pantoprazole Sodium [Protonix] 40 mg PO DAILY #30 tablet. 01/15/19 [Rx] Referrals: Harper De La Rosa DO [Primary Care Provider] - 01/21/19 1:30 pm - Discharge Summary/Plan Comment DC Time >30 min.: No - Patient Data Vitals - Most Recent: Last Vital Signs Temp 95.3 F L 01/15/19 03:00 Pulse 80 01/15/19 03:00 Resp 18 01/15/19 03:00 BP 114/78 01/15/19 03:00 Pulse Ox 96 01/15/19 03:00 Weight - Most Recent: 241 lb I&O - Last 24 hours: Intake & Output 01/14/19 01/15/19 01/15/19 22:59 06:59 14:59 Intake Total 1200 Balance 1200 Lab Results - Last 24 hrs: Laboratory Results - last 24 hr 01/15/19 01/15/19 Range/Units 04:00 04:00 Amylase 89 D (25-115) U/L Lipase 350 (73-393) U/L Med Orders - Current: Current Medications Albuterol (Proventil Neb Soln) 2.5 mg NEB Q4H PRN PRN Reason: Shortness Of Breath/wheezing Citalopram Hydrobromide (Celexa) 40 mg PO DAILY [facility] Last Admin: 01/15/19 09:22 Dose: 40 mg Docusate Sodium (Colace) 100 mg PO BID PRN PRN Reason: Constipation Enoxaparin Sodium (Lovenox) 40 mg SUBCUT DAILY [facility] Last Admin: 01/15/19 09:22 Dose: 40 mg Hydromorphone HCl (Dilaudid) 1 mg IVPUSH Q2H PRN PRN Reason: Abdominal Pain Last Admin: 01/15/19 05:14 Dose: 1 mg Lorazepam (Ativan) 1 mg IV Q6H PRN PRN Reason: Nausea/Vomiting Ondansetron HCl (Zofran) 4 mg IV Q4H PRN PRN Reason: Nausea/Vomiting Discontinued Medications Sodium Chloride (Normal Saline) 1,000 mls @ 999 mls/hr IV ASDIRECTED [facility] Last Admin: 01/13/19 19:01 Dose: 999 mls/hr Sodium Chloride (Normal Saline) 1,000 mls @ 125 mls/hr IV ASDIRECTED [facility] Last Admin: 01/14/19 05:06 Dose: 125 mls/hr Sodium Chloride (Normal Saline) 100 mls @ 3 mls/sec IV ASDIRECTED [facility] Stop: 01/14/19 13:16 Sodium Chloride (Normal Saline) 85 mls @ 3 mls/sec IV ASDIRECTED [facility] Stop: 01/14/19 13:16 Iopamidol (Isovue-300 (61%)) 100 ml IV . DIRECTED [facility] Stop: 01/14/19 13:16 Iopamidol (Isovue-300 (61%)) 100 ml IV . DIRECTED [facility] Stop: 01/14/19 13:16 Ondansetron HCl (Zofran) 4 mg IVPUSH ONETIME ONE Stop: 01/13/19 18:45 Last Admin: 01/13/19 19:01 Dose: 4 mg Sodium Chloride (Saline Flush) 10 ml FLUSH ONETIME ONE Stop: 01/14/19 13:15 Last Admin: 01/14/19 14:54 Dose: 10 ml Sodium Chloride (Saline Flush) 10 ml FLUSH ONETIME ONE Stop: 01/14/19 13:16 Last Admin: 01/14/19 14:54 Dose: Not Given - Exam General: Reports: Alert, Oriented, Cooperative, No Acute Distress Lungs: Reports: Clear to Auscultation, Normal Respiratory Effort Cardiovascular: Reports: Regular Rate, Regular Rhythm, No Murmurs GI/Abdominal Exam: Soft, No Organomegaly, Tender. No: Distended, Guarding, Rigid, Rebound
== END 2019-01-15 11:20 | disposition home or self-care (01) | DRG 439 ==
LOC: JP.ED 18:13 → JP.MS 19:34
PROVIDERS: ADMIT Hospitalist; ATTEND Hospitalist
DX: K85.30 Drug induced acute pancreatitis without necrosis or infection (principal); K86.3 Pseudocyst of pancreas; E86.0 Dehydration; H54.7 Unspecified visual loss; F41.9 Anxiety disorder, unspecified; F32.9 Major depressive disorder, single episode, unspecified; Z79.899 Other long term (current) drug therapy
CPT/HCPCS: 36415; 74177; 76705; 80048; 80053; 80305-QW; 81001; 81025; 82150; 83690; 84478; 85025; 96361; 96374; 99284-25; A9270-GY; G0480; J1170; J1650; J2405; J7030

== ENCOUNTER 2019-02-09 17:21 | Emergency (ER) | payer MEDICAID ==
[2019-02-09] MEDS ORDERED: Sodium Chloride 0.9% 10 ML Syringe FLUSH PRN (18:08)
[2019-02-09] MEDS ORDERED: Acetaminophen/HYDROcodone 325-5 MG Tab PO ONE (18:09)
[2019-02-09] MEDS ORDERED: Ondansetron 4 MG Tab.DIS PO ONE (18:09)
--- NOTE | 2019-02-09 18:15 | EDM.PDOC ---
ED HPI GENERAL MEDICAL PROBLEM - General Chief Complaint: Abdominal Pain Stated Complaint: ABD AND BACK PAIN Time Seen by Provider: 02/09/19 18:00 Source of Information: Reports: Patient, Old Records History Limitations: Reports: No Limitations - History of Present Illness INITIAL COMMENTS - FREE TEXT/NARRATIVE: 18 yo morbidly obese 18 yo female presents with epigastric pain for a few days. Has a pHx of pancreatitis and has been told in the past this was due to alcohol use. She denies any recent ETOH ingestion. Has not communicated with her primary about this pain. Ate a full meal before coming to the ER without any worsening of her sx's. Vomited once this morning and has had some mild ongoing nausea. No change in bowel or bladder fxn. Still has her gallbladder. No fever. No self tx. Was recently prescribed Protonix, but never picked up the Rx. Onset: Gradual Onset Date: 02/06/19 Duration: Day(s):, Getting Worse Location: Reports: Abdomen (epigastric) Quality: Reports: Ache Severity: Moderate Improves with: Reports: None Worsens with: Reports: Other (time) Context: Reports: Other (see HPI) Associated Symptoms: Reports: Nausea/Vomiting (emesis x one only). 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: Reports: Polycystic Ovaries Psychiatric History: Reports: Anxiety Endocrine/Metabolic History: Reports: Obesity/BMI 30+, Other (See Below) Other Endocrine/Metabolic History: pre diabetic Dermatologic History: Reports: Psoriasis - Past Surgical History HEENT Surgical History: Reports: None Dermatological Surgical History: Reports: None Social & Family History - Family History Psychiatric: Reports: Anxiety, Bipolar, Depression, Panic Attack Endocrine/Metabolic: Reports: Diabetes, type II Dermatologic: Reports: Psoriasis - Tobacco Use Smoking Status *Q: Never Smoker Second Hand Smoke Exposure: No - Caffeine Use Caffeine Use: Reports: Energy Drinks - Recreational Drug Use Recreational Drug Use: Yes Drug Use in Last 12 Months: Yes Recreational Drug Type: Reports: Marijuana/Hashish Recreational Drug Use Frequency: Daily - Living Situation & Occupation Living situation: Reports: with Significant Other Occupation: Unemployed (lives with Boyfriend between [place] and [place]. Not working, no children.) ED ROS GENERAL - Review of Systems Review Of Systems: See Below Constitutional: Reports: No Symptoms HEENT: Reports: No Symptoms Respiratory: Reports: No Symptoms Cardiovascular: Reports: No Symptoms GI/Abdominal: Reports: Abdominal Pain (epigastric), Nausea. Denies: Black Stool , Bloody Stool, Constipation, Diarrhea, Decreased Appetite, Difficulty Swallowing, Distension, Flatus, Hematemesis, Hematochezia, Melena, Vomiting : Reports: No Symptoms Musculoskeletal: Reports: No Symptoms Skin: Reports: No Symptoms Neurological: Reports: No Symptoms ED EXAM, GI/ABD - Physical Exam Exam: See Below Exam Limited By: No Limitations General Appearance: Alert, WD/WN, No Apparent Distress, Obese Eyes: Bilateral: Normal Appearance Ears: Normal External Exam, Normal Canal, Hearing Grossly Normal, Normal TMs Nose: Normal Inspection, Normal Mucosa, No Blood Throat/Mouth: Normal Inspection, Normal Lips, Normal Oropharynx, Normal Voice, No Airway Compromise Head: Atraumatic, Normocephalic Neck: Normal Inspection Respiratory/Chest: No Respiratory Distress, Lungs Clear, Normal Breath Sounds, No Accessory Muscle Use Cardiovascular: Regular Rate, Rhythm, No Edema GI/Abdominal Exam: Normal Bowel Sounds, Soft, No Distention, Tender (epigastric only). No: Non-Tender, Distended, Guarding, Rigid, Rebound, Abnormal Bowel Sounds, Hernia Back Exam: Normal Inspection. No: CVA Tenderness (R), CVA Tenderness (L) Extremities: Normal Inspection, Normal Range of Motion, Non-Tender, No Pedal Edema Neurological: Alert, Oriented, CN II-XII Intact, Normal Cognition, No Motor/ Sensory Deficits Psychiatric: Normal Affect, Normal Mood Skin Exam: Warm, Dry, Intact, Normal Color, No Rash Course - Vital Signs Last Recorded V/S: Last Vital Signs Temp 35.6 C 02/09/19 17:44 Pulse 104 H 02/09/19 17:44 Resp 16 02/09/19 17:44 BP 128/79 02/09/19 17:44 Pulse Ox 95 02/09/19 17:44 - Orders/Labs/Meds Orders: Active Orders 24 hr Category Date Time Status Sodium Chloride 0.9% [Saline Flush] Med 02/09/19 18:08 Active 10 ml FLUSH ASDIRECTED PRN Saline Lock Insert [OM.PC] Routine Oth 02/09/19 18:08 Ordered Medication Orders Sodium Chloride (Saline Flush) 10 ml FLUSH ASDIRECTED PRN PRN Reason: Keep Vein Open Last Admin: 02/09/19 18:21 Dose: 10 ml Labs: Laboratory Tests 02/09/19 02/09/19 Range/Units 18:18 18:18 WBC 7.8 (4.5-11.0) K/uL RBC 4.48 (3.30-5.50) M/uL Hgb 13.4 (12.0-15.0) g/dL Hct 41.2 (36.0-48.0) % MCV 92 (80-98) fL MCH 30 (27-31) pg MCHC 33 (32-36) % Plt Count 370 (150-400) K/uL Sodium 142 (140-148) mmol/L Potassium 3.3 L (3.6-5.2) mmol/L Chloride 106 (100-108) mmol/L Carbon Dioxide 23 (21-32) mmol/L Anion Gap 16.3 H (5.0-14.0) mmol/L BUN 5 L (7-18) mg/dL Creatinine 0.8 (0.6-1.0) mg/dL Est Cr Clr Drug Dosing 105.89 mL/min Estimated GFR (MDRD) > 60 (>60) Glucose 110 H (74-106) mg/dL Calcium 8.9 (8.5-10.1) mg/dL Lipase 136 (73-393) U/L Meds: Medications Generic Name Dose Route Start Last Admin Trade Name Freq PRN Reason Stop Dose Admin Sodium Chloride 10 ml 02/09/19 18:08 02/09/19 18:21 Saline Flush FLUSH 10 ml ASDIRECTED PRN Administration Keep Vein Open Discontinued Medications Generic Name Dose Route Start Last Admin Trade Name Paul PRN Reason Stop Dose Admin Hydrocodone Bitart/Acetaminophen 1 tab 02/09/19 18:09 02/09/19 18:21 [place] 325-5 Mg PO 02/09/19 18:10 1 tab ONETIME ONE Administration Ondansetron HCl 4 mg 02/09/19 18:09 02/09/19 18:22 Zofran Odt PO 02/09/19 18:10 4 mg ONETIME ONE Administration Departure - Departure Time of Disposition: 18:42 Disposition: Home, Self-Care 01 Condition: Fair Clinical Impression: Medical non-compliance, Marijuana smoker, Hypokalemia Gastritis Qualifiers: Gastritis type: unspecified gastritis Chronicity: acute Gastritis bleeding: without bleeding Qualified Code(s): K29.00 - Acute gastritis without bleeding - Discharge Information *PRESCRIPTION DRUG MONITORING PROGRAM REVIEWED*: No *COPY OF PRESCRIPTION DRUG MONITORING REPORT IN PATIENT STEVEN: No Instructions: Gastritis, Adult, [id number] Referrals: Harper De La Rosa DO [Primary Care Provider] - Forms: ED Department Discharge Additional Instructions: Take omeprazole or Protonix 40 mg daily. Follow up in the clinic for recheck. Eat more foods high in potassium. Take acetaminophen as needed for pain relief. Avoid aspirin, ibuprofen, Aleve, carbonated beverages, smoking, alcohol, or caffeine. You may benefit for the next week by using an antacid like Maalox 30 ml after meals and at bedtime(can use generic). - My Orders Last 24 Hours: My Active Orders 02/09/19 18:08 Sodium Chloride 0.9% [Saline Flush] 10 ml FLUSH ASDIRECTED PRN Saline Lock Insert [OM.PC] Routine - Assessment/Plan Last 24 Hours: My Active Orders 02/09/19 18:08 Sodium Chloride 0.9% [Saline Flush] 10 ml FLUSH ASDIRECTED PRN Saline Lock Insert [OM.PC] Routine
== END 2019-02-09 18:59 | disposition home or self-care (01) ==
LOC: JP.ED 17:21
DX: K29.00 Acute gastritis without bleeding (principal); Z91.14 Patient's other noncompliance with medication regimen; F12.90 Cannabis use, unspecified, uncomplicated; E87.6 Hypokalemia; F41.9 Anxiety disorder, unspecified; E66.9 Obesity, unspecified; Z68.39 Body mass index [BMI] 39.0-39.9, adult; Z79.899 Other long term (current) drug therapy
CPT/HCPCS: 36415; 80048; 83690; 85027; 99284; A9270; 99283

== ENCOUNTER 2019-09-25 18:52 | Emergency (ER) | payer MEDICAID ==
[2019-09-25] MEDS ORDERED: Lactated Ringers 1,000 ML IV ONE (19:36)
[2019-09-25] MEDS ORDERED: HYDROmorphone 0.5 MG/0.5 ML Syringe IVPUSH ONE ×2 (19:46→20:48)
[2019-09-25] MEDS ORDERED: Prochlorperazine 10 MG/2 ML SDV IVPUSH ONE (19:46)
--- NOTE | 2019-09-25 19:46 | EDM.PDOC ---
ED HPI GENERAL MEDICAL PROBLEM - General Chief Complaint: Abdominal Pain Stated Complaint: PANCREATIC ATTACK Time Seen by Provider: 09/25/19 19:30 Source of Information: Reports: Patient, Old Records History Limitations: Reports: No Limitations - History of Present Illness INITIAL COMMENTS - FREE TEXT/NARRATIVE: 18 yo female presents with about an hour's duration of upper abdominal pain like her prior attacks of pancreatitis. Has had nausea, but no vomiting. Stools are normal. Pain is currently 4/10. Says no one knows why she his having issues with her pancreas. Onset: Today, Gradual Onset Date: 09/25/19 Duration: Hour(s): (1), Constant Location: Reports: Abdomen (epigastric) Quality: Reports: Ache Severity: Moderate Improves with: Reports: None Worsens with: Reports: Other (? time) Context: Reports: Other (See HPI) Associated Symptoms: Reports: Loss of Appetite, Nausea/Vomiting (no vomiting). 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: Reports: Polycystic Ovaries Psychiatric History: Reports: Anxiety, Depression Endocrine/Metabolic History: Reports: Obesity/BMI 30+, Other (See Below) Other Endocrine/Metabolic History: pre diabetic Dermatologic History: Reports: Psoriasis - Past Surgical History Head Surgeries/Procedures: Reports: None HEENT Surgical History: Reports: None Dermatological Surgical History: Reports: None Social & Family History - Family History Psychiatric: Reports: Anxiety, Bipolar, Depression, Panic Attack Endocrine/Metabolic: Reports: Diabetes, type II Dermatologic: Reports: Psoriasis - Tobacco Use Smoking Status *Q: Never Smoker - Caffeine Use Caffeine Use: Reports: None - Recreational Drug Use Recreational Drug Use: Yes Drug Use in Last 12 Months: Yes Recreational Drug Type: Reports: Marijuana/Hashish Recreational Drug Use Frequency: Daily - Living Situation & Occupation Living situation: Reports: with Significant Other Occupation: Unemployed (lives with Boyfriend between [place] and [place]. Not working, no children.) ED ROS GENERAL - Review of Systems Review Of Systems: See Below Constitutional: Reports: Decreased Appetite HEENT: Reports: No Symptoms Respiratory: Reports: No Symptoms Cardiovascular: Reports: No Symptoms Endocrine: Reports: No Symptoms GI/Abdominal: Reports: Abdominal Pain, Nausea. Denies: Black Stool, Bloody Stool, Constipation, Diarrhea, Decreased Appetite, Distension, Flatus, Hematemesis, Hematochezia, Melena, Vomiting : Reports: No Symptoms Musculoskeletal: Reports: No Symptoms Skin: Reports: No Symptoms Neurological: Reports: No Symptoms Psychiatric: Reports: No Symptoms ED EXAM, GI/ABD - Physical Exam Exam: See Below Exam Limited By: No Limitations General Appearance: Alert, WD/WN, No Apparent Distress, Obese Eyes: Bilateral: Normal Appearance Ears: Normal External Exam, Normal Canal, Hearing Grossly Normal Nose: Normal Inspection, No Blood Throat/Mouth: Normal Inspection, Normal Lips, Normal Oropharynx, Normal Voice, No Airway Compromise Head: Atraumatic, Normocephalic Neck: Normal Inspection Respiratory/Chest: No Respiratory Distress, Lungs Clear, Normal Breath Sounds, No Accessory Muscle Use Cardiovascular: Regular Rate, Rhythm, No Edema GI/Abdominal Exam: Normal Bowel Sounds, Soft, No Distention, Tender (epigastrium). No: Non-Tender, Distended, Guarding, Rigid, Rebound Back Exam: Normal Inspection. No: CVA Tenderness (R), CVA Tenderness (L) Extremities: Normal Inspection, Normal Range of Motion, Non-Tender, No Pedal Edema. No: Pedal Edema Neurological: Alert, Oriented, CN II-XII Intact, Normal Cognition, No Motor/Sensory Deficits Psychiatric: Normal Affect, Normal Mood Skin Exam: Warm, Dry, Intact, Normal Color, No Rash Course - Vital Signs Last Recorded V/S: Last Vital Signs Temp 36.2 C 09/25/19 19:21 Pulse 82 09/25/19 19:21 Resp 14 09/25/19 19:21 BP 127/71 09/25/19 19:21 Pulse Ox 95 09/25/19 19:21 - Orders/Labs/Meds Orders: Active Orders 24 hr Category Date Time Status UA W/MICROSCOPIC [URIN] Stat Lab 09/25/19 21:04 Ordered Labs: Laboratory Tests 09/25/19 09/25/19 09/25/19 Range/Units 20:05 20:05 20:05 WBC 9.4 (4.5-11.0) K/uL RBC 4.83 (3.30-5.50) M/uL Hgb 14.4 (12.0-15.0) g/dL Hct 43.6 (36.0-48.0) % MCV 90 (80-98) fL MCH 30 (27-31) pg MCHC 33 (32-36) % Plt Count 331 (150-400) K/uL Sodium 140 (140-148) mmol/L Potassium 3.9 (3.6-5.2) mmol/L Chloride 102 (100-108) mmol/L Carbon Dioxide 26 (21-32) mmol/L Anion Gap 12.0 (5.0-14.0) mmol/L BUN 15 D (7-18) mg/dL Creatinine 1.0 (0.6-1.0) mg/dL Est Cr Clr Drug Dosing 84.71 mL/min Estimated GFR (MDRD) > 60 (>60) Glucose 96 (74-106) mg/dL Calcium 9.0 (8.5-10.1) mg/dL Lipase 181 (73-393) U/L Urine Opiates Screen (NEGATIVE) Ur Oxycodone Screen (NEGATIVE) Urine Methadone Screen (NEGATIVE) Ur Propoxyphene Screen (NEGATIVE) Ur Barbiturates Screen (NEGATIVE) Ur Tricyclics Screen (NEGATIVE) Ur Phencyclidine Scrn (NEGATIVE) Ur Amphetamine Screen (NEGATIVE) U Methamphetamines Scrn (NEGATIVE) Urine MDMA Screen (NEGATIVE) U Benzodiazepines Scrn (NEGATIVE) U Cocaine Metab Screen (NEGATIVE) U Marijuana (THC) Screen (NEGATIVE) 09/25/19 Range/Units 21:04 WBC (4.5-11.0) K/uL RBC (3.30-5.50) M/uL Hgb (12.0-15.0) g/dL Hct (36.0-48.0) % MCV (80-98) fL MCH (27-31) pg MCHC (32-36) % Plt Count (150-400) K/uL Sodium (140-148) mmol/L Potassium (3.6-5.2) mmol/L Chloride (100-108) mmol/L Carbon Dioxide (21-32) mmol/L Anion Gap (5.0-14.0) mmol/L BUN (7-18) mg/dL Creatinine (0.6-1.0) mg/dL Est Cr Clr Drug Dosing mL/min Estimated GFR (MDRD) (>60) Glucose (74-106) mg/dL Calcium (8.5-10.1) mg/dL Lipase (73-393) U/L Urine Opiates Screen Negative (NEGATIVE) Ur Oxycodone Screen Negative (NEGATIVE) Urine Methadone Screen Negative (NEGATIVE) Ur Propoxyphene Screen Negative (NEGATIVE) Ur Barbiturates Screen Negative (NEGATIVE) Ur Tricyclics Screen Negative (NEGATIVE) Ur Phencyclidine Scrn Negative (NEGATIVE) Ur Amphetamine Screen Negative (NEGATIVE) U Methamphetamines Scrn Negative (NEGATIVE) Urine MDMA Screen Negative (NEGATIVE) U Benzodiazepines Scrn Negative (NEGATIVE) U Cocaine Metab Screen Negative (NEGATIVE) U Marijuana (THC) Screen Presumptive positive H (NEGATIVE) Meds: Medications Discontinued Medications Generic Name Dose Route Start Last Admin Trade Name Freq PRN Reason Stop Dose Admin Hydromorphone HCl 0.5 mg 09/25/19 19:46 09/25/19 20:11 Dilaudid IVPUSH 09/25/19 19:47 0.5 mg ONETIME ONE Administration Hydromorphone HCl 0.5 mg 09/25/19 20:48 09/25/19 20:56 Dilaudid IVPUSH 09/25/19 20:49 0.5 mg ONETIME ONE Administration Lactated Ringer's 1,000 mls @ 1,000 mls/hr 09/25/19 19:36 09/25/19 20:05 Ringers, Lactated IV 09/25/19 20:35 1,000 mls/hr BOLUS ONE Administration Prochlorperazine Edisylate 5 mg 09/25/19 19:46 09/25/19 20:08 Compazine IVPUSH 09/25/19 19:47 5 mg ONETIME ONE Administration Departure - Departure Time of Disposition: 21:25 Disposition: Home, Self-Care 01 Condition: Fair Clinical Impression: Cannabinoid hyperemesis syndrome - Discharge Information *PRESCRIPTION DRUG MONITORING PROGRAM REVIEWED*: Not Applicable *COPY OF PRESCRIPTION DRUG MONITORING REPORT IN PATIENT STEVEN: Not Applicable Instructions: Cannabis Use Disorder Referrals: PCP,None [Primary Care Provider] - Forms: ED Department Discharge Additional Instructions: Use Zofran ODT as needed for nausea control. Clear liquids only until feeling better. Follow up with your provider next week for recheck. Acetaminophen 1000 mg every 6 hrs as needed for pain relief. Return as needed. Avoiding marijuana may prevent recurrence of this entity. Sepsis Event Note (ED) - Evaluation Sepsis Screening Result: No Definite Risk - Focused Exam Vital Signs: Vital Signs Temp Pulse Resp BP Pulse Ox 09/25/19 19:21 36.2 C 82 14 127/71 95 09/25/19 19:01 36.2 C 82 14 127/71 95 - My Orders Last 24 Hours: My Active Orders 09/25/19 21:04 UA W/MICROSCOPIC [URIN] Stat - Assessment/Plan Last 24 Hours: My Active Orders 09/25/19 21:04 UA W/MICROSCOPIC [URIN] Stat
== END 2019-09-25 21:56 | disposition home or self-care (01) ==
LOC: JP.ED 18:52
DX: F12.188 Cannabis abuse with other cannabis-induced disorder (principal); F41.9 Anxiety disorder, unspecified; F32.9 Major depressive disorder, single episode, unspecified; E66.9 Obesity, unspecified; Z79.899 Other long term (current) drug therapy
CPT/HCPCS: 36415; 80048; 80305; 81001; 83690; 85027; 96374; 96375; 96376; 99284; J0780; J1170; J7120

== ENCOUNTER 2019-10-01 20:58 | Emergency (ER) | payer MEDICAID ==
[2019-10-01] MEDS ORDERED: Prochlorperazine 10 MG/2 ML SDV IVPUSH ONE (22:10)
[2019-10-01] MEDS ORDERED: Lactated Ringers 1,000 ML IV ONE (22:10)
[2019-10-01] MEDS ORDERED: Ketorolac 30 MG/ML SDV IVPUSH ONE (22:11)
[2019-10-01] MEDS ORDERED: diphenhydrAMINE 50 MG/ML SDV IVPUSH ONE (22:11)
[2019-10-01] MEDS ORDERED: Dicyclomine 10 MG Cap PO ONE (22:14)
--- NOTE | 2019-10-01 22:23 | EDM.PDOC ---
ED HPI GENERAL MEDICAL PROBLEM - General Chief Complaint: Abdominal Pain Stated Complaint: SEVERE ABD PAIN Time Seen by Provider: 10/01/19 22:05 Source of Information: Reports: Patient, Old Records, RN History Limitations: Reports: No Limitations - History of Present Illness INITIAL COMMENTS - FREE TEXT/NARRATIVE: 18 yo female presents with nausea and epigastric pain. Sx's began about 2 hrs ago. No diarrhea. Has a pHx of both pancreatitis and hyperemesis cannabinoid syndrome. Her last visit about a week ago was for the latter. She states that she has not used marijuana since her last ER visit. She is not able to distinguish these two entities from each other. The pain from this does wax and wane since it began. Onset: Today Onset Date: 10/01/19 Onset Time: 20:30 Duration: Hour(s):, Waxing/Waning Location: Reports: Abdomen Quality: Reports: Ache Severity: Moderate Improves with: Reports: None Worsens with: Reports: Other (unknown) Context: Reports: Other (See HPI) Associated Symptoms: Reports: Nausea/Vomiting. 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: Other (see below) (none) Upper Abdomen Pain Score (Numeric/FACES): 1 - Related Data Allergies Allergy/AdvReac Type Severity Reaction Status Date / Time No Known Allergies Allergy Verified 10/01/19 21:34 Home Meds: Home Meds Citalopram Hydrobromide [Celexa] 40 mg PO DAILY 12/18/18 [History] Spironolactone [Aldactone] 50 mg PO BID 12/18/18 [History] metFORMIN [Glucophage XR] 500 mg PO DAILY 12/18/18 [History] Acetaminophen [Tylenol] 1,000 mg PO Q4H PRN 12/22/18 [History] Past Medical History HEENT History: Reports: Impaired Vision, Other (See Below) Other HEENT History: glasses Gastrointestinal History: Reports: Pancreatitis 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 Endocrine/Metabolic History: Reports: Obesity/BMI 30+, Other (See Below) Other Endocrine/Metabolic History: pre diabetic Dermatologic History: Reports: Psoriasis - Past Surgical History HEENT Surgical History: Reports: None Social & Family History - Family History Psychiatric: Reports: Anxiety, Bipolar, Depression, Panic Attack Endocrine/Metabolic: Reports: Diabetes, type II Dermatologic: Reports: Psoriasis - Tobacco Use Smoking Status *Q: Never Smoker Second Hand Smoke Exposure: No - Caffeine Use Caffeine Use: Reports: None - Alcohol Use Days Per Week of Alcohol Use: 0 - Recreational Drug Use Recreational Drug Use: Yes Drug Use in Last 12 Months: Yes Recreational Drug Type: Reports: Marijuana/Hashish Recreational Drug Use Frequency: Daily Recreational Drug Last Use: September 28 2019 - Living Situation & Occupation Living situation: Reports: with Significant Other Occupation: Unemployed (lives with Boyfriend between [place] and [facility] [employer]. Not working, no children.) ED ROS GENERAL - Review of Systems Review Of Systems: See Below Constitutional: Reports: No Symptoms HEENT: Reports: No Symptoms Respiratory: Reports: No Symptoms Cardiovascular: Reports: No Symptoms GI/Abdominal: Reports: Abdominal Pain, Nausea, Vomiting. Denies: Black Stool, Bloody Stool, Constipation, Diarrhea, Distension, Hematochezia, Melena : Reports: No Symptoms Musculoskeletal: Reports: No Symptoms Skin: Reports: No Symptoms Neurological: Reports: No Symptoms ED EXAM, GI/ABD - Physical Exam Exam: See Below Exam Limited By: No Limitations General Appearance: Alert, WD/WN, No Apparent Distress, Obese Eyes: Bilateral: Normal Appearance Ears: Normal External Exam, Normal Canal, Hearing Grossly Normal Nose: Normal Inspection, No Blood Throat/Mouth: Normal Inspection, Normal Lips, Normal Voice, No Airway Compromise Head: Atraumatic, Normocephalic Neck: Normal Inspection Respiratory/Chest: No Respiratory Distress, Lungs Clear, Normal Breath Sounds, No Accessory Muscle Use Cardiovascular: Regular Rate, Rhythm, No Edema GI/Abdominal Exam: No Distention, Tender (mild epigastric tenderness), Abnormal Bowel Sounds (decreased). No: Distended, Guarding, Rigid, Rebound Back Exam: Normal Inspection. No: CVA Tenderness (R), CVA Tenderness (L) Extremities: Normal Inspection, Normal Range of Motion, Non-Tender, No Pedal Edema. No: Pedal Edema Neurological: Alert, Oriented, CN II-XII Intact, Normal Cognition, No Motor/Sensory Deficits Psychiatric: Normal Affect, Normal Mood Skin Exam: Warm, Dry, Intact, Normal Color, No Rash Course - Vital Signs Last Recorded V/S: Last Vital Signs Temp 36.3 C 10/01/19 21:41 Pulse 79 10/01/19 21:41 Resp 20 10/01/19 21:41 BP 102/52 L 10/01/19 21:41 Pulse Ox 99 10/01/19 21:41 - Orders/Labs/Meds Labs: Laboratory Tests 10/01/19 Range/Units 22:25 Lipase 210 (73-393) U/L Meds: Medications Discontinued Medications Generic Name Dose Route Start Last Admin Trade Name Paul PRN Reason Stop Dose Admin Dicyclomine HCl 30 mg 10/01/19 22:14 10/01/19 22:42 Bentyl PO 10/01/19 22:15 30 mg ONETIME ONE Administration Diphenhydramine HCl 50 mg 10/01/19 22:11 10/01/19 22:50 Benadryl IVPUSH 10/01/19 22:12 50 mg ONETIME ONE Administration Lactated Ringer's 1,000 mls @ 1,000 mls/hr 10/01/19 22:10 10/01/19 22:48 Ringers, Lactated IV 10/01/19 23:09 1,000 mls/hr BOLUS ONE Administration Ketorolac Tromethamine 30 mg 10/01/19 22:11 10/01/19 22:52 Toradol IVPUSH 10/01/19 22:12 30 mg ONETIME ONE Administration Prochlorperazine Edisylate 10 mg 10/01/19 22:10 10/01/19 22:54 Compazine IVPUSH 10/01/19 22:11 10 mg ONETIME ONE Administration - Re-Assessments/Exams Free Text/Narrative Re-Assessment/Exam: 10/01/19 23:24 Feels better, would like to go home. Departure - Departure Time of Disposition: 23:30 Disposition: Home, Self-Care 01 Condition: Fair Clinical Impression: Cannabinoid hyperemesis syndrome - Discharge Information *PRESCRIPTION DRUG MONITORING PROGRAM REVIEWED*: No *COPY OF PRESCRIPTION DRUG MONITORING REPORT IN PATIENT STEVEN: No Referrals: Harper De La Rosa DO [Primary Care Provider] - Forms: ED Department Discharge Additional Instructions: Continue to abstain from marijuana use, it may take up to several weeks for this condition to resolve. Return as needed. Clear liquids only tonight, then advance diet as tolerated. Acetaminophen is OK to use if needed for pain relief. Sepsis Event Note (ED) - Evaluation Sepsis Screening Result: No Definite Risk - Focused Exam Vital Signs: Vital Signs Temp Pulse Resp BP Pulse Ox 10/01/19 21:41 36.3 C 79 20 102/52 L 99
== END 2019-10-01 23:35 | disposition home or self-care (01) ==
LOC: JP.ED 20:58
DX: R11.2 Nausea with vomiting, unspecified (principal); R10.13 Epigastric pain; F41.9 Anxiety disorder, unspecified; F32.9 Major depressive disorder, single episode, unspecified; E66.9 Obesity, unspecified; Z79.84 Long term (current) use of oral hypoglycemic drugs; Z79.899 Other long term (current) drug therapy
CPT/HCPCS: 36415; 83690; 96361; 96374; 96375; 99284; A9270; J0780; J1200; J1885; J7120; 99283

== ENCOUNTER 2019-11-10 19:50 | Emergency (ER) | payer MEDICAID ==
[2019-11-10] MEDS ORDERED: Alum Hydrox/Mag Hydrox/Simeth 15 ML, Lidocaine 2% 15 ML PO ONE ×2 (20:25)
--- NOTE | 2019-11-10 21:18 | EDM.PDOC ---
ED HPI GENERAL MEDICAL PROBLEM - General Chief Complaint: Abdominal Pain Stated Complaint: POSSIBLE PANCREATITIS Time Seen by Provider: 11/10/19 20:25 Source of Information: Reports: Patient, Family History Limitations: Reports: No Limitations - History of Present Illness INITIAL COMMENTS - FREE TEXT/NARRATIVE: 19-year-old female who has had abdominal pain off and on for the past 2 days, but it became particularly bad for the last 2 hours after eating. She has a history of pancreatitis and is concerned that it may be that. The pain is epigastric, no radiation to the back and no significant nausea or vomiting. She has not taken any antacids or any other measures. No fevers or chills. Onset: Sudden (Pain started fairly suddenly about 2 hours ago) Location: Reports: Abdomen Associated Symptoms: Reports: No Other Symptoms abd pain Pain Score (Numeric/FACES): 5 - Related Data Allergies Allergy/AdvReac Type Severity Reaction Status Date / Time No Known Allergies Allergy Verified 11/10/19 20:30 Home Meds: Home Meds Citalopram Hydrobromide [Celexa] 40 mg PO DAILY 12/18/18 [History] Spironolactone [Aldactone] 50 mg PO BID 12/18/18 [History] metFORMIN [Glucophage XR] 500 mg PO BEDTIME 12/18/18 [History] Acetaminophen [Tylenol] 1,000 mg PO Q4H PRN 12/22/18 [History] Past Medical History HEENT History: Reports: Impaired Vision, Other (See Below) Other HEENT History: glasses Gastrointestinal History: Reports: Pancreatitis 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 Endocrine/Metabolic History: Reports: Obesity/BMI 30+, Other (See Below) Other Endocrine/Metabolic History: pre diabetic Dermatologic History: Reports: Psoriasis - Past Surgical History Head Surgeries/Procedures: Reports: None HEENT Surgical History: Reports: None Social & Family History - Family History Psychiatric: Reports: Anxiety, Bipolar, Depression, Panic Attack Endocrine/Metabolic: Reports: Diabetes, type II Dermatologic: Reports: Psoriasis - Tobacco Use Smoking Status *Q: Never Smoker - Caffeine Use Caffeine Use: Reports: None - Recreational Drug Use Recreational Drug Use: Yes Recreational Drug Type: Reports: Marijuana/Hashish - Living Situation & Occupation Living situation: Reports: with Significant Other Occupation: Unemployed (lives with Boyfriend between [place] and [place]. Not working, no children.) ED ROS GENERAL - Review of Systems Review Of Systems: See Below Constitutional: Denies: Fever, Chills HEENT: Reports: No Symptoms Respiratory: Reports: No Symptoms Cardiovascular: Reports: No Symptoms GI/Abdominal: Reports: Abdominal Pain. Denies: Hematemesis, Nausea, Vomiting : Reports: No Symptoms Musculoskeletal: Reports: No Symptoms Skin: Reports: No Symptoms Neurological: Reports: No Symptoms ED EXAM, GI/ABD - Physical Exam Exam: See Below Exam Limited By: No Limitations General Appearance: Alert, No Apparent Distress Eyes: Bilateral: Normal Appearance Respiratory/Chest: No Respiratory Distress, Lungs Clear Cardiovascular: Regular Rate, Rhythm GI/Abdominal Exam: Soft, Tender (She does react with tenderness to palpation across the upper abdomen, especially the epigastric area. No guarding) Extremities: Normal Inspection Neurological: Alert, Oriented Skin Exam: Warm, Dry Course - Vital Signs Last Recorded V/S: Last Vital Signs Temp 96.8 F L 11/10/19 20:17 Pulse 77 11/10/19 20:17 Resp 16 11/10/19 20:17 BP 117/71 11/10/19 20:17 Pulse Ox 96 11/10/19 20:17 - Orders/Labs/Meds Labs: Laboratory Tests 11/10/19 11/10/19 Range/Units 20:35 20:35 WBC 12.6 H (4.5-11.0) K/uL RBC 4.92 (3.30-5.50) M/uL Hgb 14.8 (12.0-15.0) g/dL Hct 43.5 (36.0-48.0) % MCV 88 (80-98) fL MCH 30 (27-31) pg MCHC 34 (32-36) % Plt Count 335 (150-400) K/uL Neut % (Auto) 74 H (36-66) % Lymph % (Auto) 19 L (24-44) % [place] % (Auto) 6 (2-6) % Eos % (Auto) 1 L (2-4) % Baso % (Auto) 0 (0-1) % Sodium 136 L (140-148) mmol/L Potassium 3.7 (3.6-5.2) mmol/L Chloride 101 (100-108) mmol/L Carbon Dioxide 21 (21-32) mmol/L Anion Gap 17.7 H (5.0-14.0) mmol/L BUN 13 (7-18) mg/dL Creatinine 1.0 (0.6-1.0) mg/dL Est Cr Clr Drug Dosing 84.01 mL/min Estimated GFR (MDRD) > 60 (>60) Glucose 131 H (74-106) mg/dL Calcium 9.3 (8.5-10.1) mg/dL Total Bilirubin 1.1 H D (0.2-1.0) mg/dL AST 75 H D (15-37) U/L ALT 89 H (12-78) U/L Alkaline Phosphatase 63 (46-116) U/L Total Protein 7.7 (6.4-8.2) g/dL Albumin 4.0 (3.4-5.0) g/dL Globulin 3.7 H (2.3-3.5) g/dL Albumin/Globulin Ratio 1.1 L (1.2-2.2) Lipase 192 (73-393) U/L Meds: Medications Discontinued Medications Generic Name Dose Route Start Last Admin Trade Name Freq PRN Reason Stop Dose Admin Al Hydroxide/Mg Hydroxide 15 0 ml 11/10/19 20:25 11/10/19 20:32 ml/ Lidocaine HCl 15 ml PO 11/10/19 20:26 30 ml ONETIME ONE Administration - Re-Assessments/Exams Free Text/Narrative Re-Assessment/Exam: 11/11/19 01:28 CBC CMP and lipase were obtained. She was given a GI cocktail with viscous lidocaine, within 10 minutes the pain was almost gone. Labs returned reassuring, lipase was normal. She did have 1 emesis prior to leaving but likely has gastritis or reflux. I recommended 40 mg of omeprazole daily for the next 5 days, then 1 daily for 3 weeks, and she can return if worsening such as fever or increased pain. Departure - Departure Time of Disposition: 21:33 Disposition: Home, Self-Care 01 Clinical Impression: Abdominal pain Qualifiers: Abdominal location: epigastric Qualified Code(s): R10.13 - Epigastric pain Gastritis Qualifiers: Gastritis type: unspecified gastritis Chronicity: acute Gastritis bleeding: without bleeding Qualified Code(s): K29.00 - Acute gastritis without bleeding - Discharge Information Instructions: Gastritis, Adult, [id number] Referrals: Harper De La Rosa DO [Primary Care Provider] - Forms: ED Department Discharge Care Plan Goals: Take 40 mg of omeprazole daily for the next 3 days, then 1 daily for 2 to 3 weeks. Recheck in 3 to 4 days if not improving satisfactorily, or return anytime if worsening despite treatment especially if you develop fevers or increased pain. A bland diet for the next 2 to 3 days may be helpful. Sepsis Event Note (ED) - Evaluation Sepsis Screening Result: No Definite Risk - Focused Exam Vital Signs: Vital Signs Temp Pulse Resp BP Pulse Ox 11/10/19 20:17 96.8 F L 77 16 117/71 96 11/10/19 20:06 96.8 F L 77 16 117/71 96
== END 2019-11-10 21:38 | disposition home or self-care (01) ==
LOC: JP.ED 19:50
DX: K29.00 Acute gastritis without bleeding (principal); F41.9 Anxiety disorder, unspecified; F32.9 Major depressive disorder, single episode, unspecified; E66.9 Obesity, unspecified; Z68.37 Body mass index [BMI] 37.0-37.9, adult; Z79.84 Long term (current) use of oral hypoglycemic drugs; Z79.899 Other long term (current) drug therapy
CPT/HCPCS: 36415; 80053; 83690; 85025; 99284; A9270

== ENCOUNTER 2019-11-12 03:08 | Emergency (ER) | payer MEDICAID ==
[2019-11-12] MEDS ORDERED: Alum Hydrox/Mag Hydrox/Simeth 15 ML, Lidocaine 2% 15 ML PO ONE ×2 (03:35)
[2019-11-12] MEDS ORDERED: Acetaminophen 500 MG Tab PO ONE (04:27)
[2019-11-12] MEDS ORDERED: Ondansetron 4 MG Tab.DIS PO ONE (04:27)
--- NOTE | 2019-11-12 04:32 | EDM.PDOC ---
ED HPI GENERAL MEDICAL PROBLEM - General Chief Complaint: Abdominal Pain Stated Complaint: ABD PAIN Time Seen by Provider: 11/12/19 04:15 Source of Information: Reports: Patient, Old Records, RN History Limitations: Reports: No Limitations - History of Present Illness INITIAL COMMENTS - FREE TEXT/NARRATIVE: 19 yo female returns with nausea and epigastric pain. Was seen here yesterday for this and her work up was negative and she was dx with gastritis and placed on a PPI. She got worse again tonight so returns. Has not vomited. Pain is in the upper abdomen. No melena or hematochezia. No diarrhea. Has been seen in the past and her dx for this was cannabinoid hyperemesis syndrome, but she says she has not smoke pot since September. Onset: Gradual Onset Date: 11/10/19 Duration: Day(s):, Waxing/Waning Location: Reports: Abdomen Quality: Reports: Ache Severity: Mild Improves with: Reports: None Worsens with: Reports: Other (uncertain) Context: Reports: Other (See HPI) Associated Symptoms: Reports: Nausea/Vomiting (no vomiting). 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 (see below) (PPI) Upper Abdomen Pain Score (Numeric/FACES): 5 - Related Data Allergies Allergy/AdvReac Type Severity Reaction Status Date / Time No Known Allergies Allergy Verified 11/12/19 03:21 Home Meds: Home Meds Citalopram Hydrobromide [Celexa] 40 mg PO DAILY 12/18/18 [History] Spironolactone [Aldactone] 50 mg PO BID 12/18/18 [History] metFORMIN [Glucophage XR] 500 mg PO BEDTIME 12/18/18 [History] Acetaminophen [Tylenol] 1,000 mg PO Q4H PRN 12/22/18 [History] Omeprazole 40 mg PO DAILY 11/12/19 [History] Past Medical History HEENT History: Reports: Impaired Vision, Other (See Below) Other HEENT History: glasses Gastrointestinal History: Reports: Pancreatitis 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 Endocrine/Metabolic History: Reports: Obesity/BMI 30+, Other (See Below) Other Endocrine/Metabolic History: pre diabetic Dermatologic History: Reports: Psoriasis - Past Surgical History HEENT Surgical History: Reports: None Social & Family History - Family History Psychiatric: Reports: Anxiety, Bipolar, Depression, Panic Attack Endocrine/Metabolic: Reports: Diabetes, type II Dermatologic: Reports: Psoriasis - Tobacco Use Smoking Status *Q: Never Smoker Second Hand Smoke Exposure: No - Caffeine Use Caffeine Use: Reports: None - Recreational Drug Use Recreational Drug Use: Yes Drug Use in Last 12 Months: No Recreational Drug Type: Reports: Marijuana/Hashish Recreational Drug Use Frequency: Not Used In Over 2 Months - Living Situation & Occupation Living situation: Reports: with Significant Other Occupation: Unemployed (lives with Boyfriend between [place] and [place]. Not working, no children.) ED ROS GENERAL - Review of Systems Review Of Systems: See Below Constitutional: Reports: No Symptoms HEENT: Reports: No Symptoms Respiratory: Reports: No Symptoms Cardiovascular: Reports: No Symptoms Endocrine: Reports: No Symptoms GI/Abdominal: Reports: Abdominal Pain (epigastric), Nausea. Denies: Black Stool, Constipation, Diarrhea, Distension, Hematemesis, Hematochezia, Melena, Vomiting : Reports: No Symptoms Musculoskeletal: Reports: No Symptoms Skin: Reports: No Symptoms Neurological: Reports: No Symptoms ED EXAM, GI/ABD - Physical Exam Exam: See Below Exam Limited By: No Limitations General Appearance: Alert, WD/WN, No Apparent Distress Eyes: Bilateral: Normal Appearance Ears: Normal External Exam, Normal Canal, Hearing Grossly Normal Nose: Normal Inspection, No Blood Throat/Mouth: Normal Inspection, Normal Lips, Normal Oropharynx, Normal Voice, No Airway Compromise Head: Atraumatic, Normocephalic Neck: Normal Inspection Respiratory/Chest: No Respiratory Distress, Lungs Clear, Normal Breath Sounds, No Accessory Muscle Use Cardiovascular: Regular Rate, Rhythm, No Edema GI/Abdominal Exam: Normal Bowel Sounds, Soft, No Distention, Tender (mild epigastric tenderness). No: Non-Tender, Distended, Guarding, Rigid, Rebound Extremities: Normal Inspection Neurological: Alert, Oriented, CN II-XII Intact, Normal Cognition, No Motor/Sensory Deficits Psychiatric: Normal Affect, Normal Mood Skin Exam: Warm, Dry, Intact, Normal Color, No Rash Course - Vital Signs Last Recorded V/S: Last Vital Signs Temp 36.3 C 11/12/19 03:20 Pulse 89 11/12/19 03:20 Resp 16 11/12/19 03:20 BP 106/72 11/12/19 03:20 Pulse Ox 98 11/12/19 03:20 - Orders/Labs/Meds Orders: Active Orders 24 hr Category Date Time Status DRUG SCREEN, URINE [URCHEM] Stat Lab 11/12/19 04:22 Ordered Ondansetron [Zofran ODT] Med 11/12/19 04:27 Once 4 mg PO ONETIME ONE Labs: Laboratory Tests 11/12/19 Range/Units 03:44 Lipase 286 (73-393) U/L Meds: Medications Discontinued Medications Generic Name Dose Route Start Last Admin Trade Name Freq PRN Reason Stop Dose Admin Al Hydroxide/Mg Hydroxide 15 0 ml 11/12/19 03:35 11/12/19 03:42 ml/ Lidocaine HCl 15 ml PO 11/12/19 03:36 30 ml ONETIME ONE Administration - Re-Assessments/Exams Free Text/Narrative Re-Assessment/Exam: 11/12/19 04:33 Partial relief with GI cocktail po. Departure - Departure Time of Disposition: 04:40 Disposition: Home, Self-Care 01 Condition: Fair Clinical Impression: Nausea Gastritis Qualifiers: Gastritis type: unspecified gastritis Chronicity: acute Gastritis bleeding: without bleeding Qualified Code(s): K29.00 - Acute gastritis without bleeding - Discharge Information *PRESCRIPTION DRUG MONITORING PROGRAM REVIEWED*: No *COPY OF PRESCRIPTION DRUG MONITORING REPORT IN PATIENT STEVEN: No Instructions: Nausea, Adult, Gastritis, Adult Referrals: Harper De La Rosa DO [Primary Care Provider] - Additional Instructions: Continue the medication started yesterday. Add acetaminophen 1000 mg every 6 hrs as needed for pain relief. May add Maalox 30 ml after meal time and at bedtime as needed for added pain relief. Avoid ibuprofen, Aleve, aspirin, carbonated thuan erages, tobacco, or caffeine. Use Zofran as needed for nausea control. F/U with your provider in the clinic. Sepsis Event Note (ED) - Evaluation Sepsis Screening Result: No Definite Risk - Focused Exam Vital Signs: Vital Signs Temp Pulse Resp BP Pulse Ox 11/12/19 03:20 36.3 C 89 16 106/72 98 - My Orders Last 24 Hours: My Active Orders 11/12/19 04:22 DRUG SCREEN, URINE [URCHEM] Stat 11/12/19 04:27 Ondansetron [Zofran ODT] 4 mg PO ONETIME ONE - Assessment/Plan Last 24 Hours: My Active Orders 11/12/19 04:22 DRUG SCREEN, URINE [URCHEM] Stat 11/12/19 04:27 Ondansetron [Zofran ODT] 4 mg PO ONETIME ONE
== END 2019-11-12 05:06 | disposition home or self-care (01) ==
LOC: JP.ED 03:08
DX: K29.00 Acute gastritis without bleeding (principal); R11.0 Nausea; F41.9 Anxiety disorder, unspecified; F32.9 Major depressive disorder, single episode, unspecified; E66.9 Obesity, unspecified; Z68.37 Body mass index [BMI] 37.0-37.9, adult
CPT/HCPCS: 36415; 83690; 99284; A9270; 99283

== ENCOUNTER 2019-11-14 18:09 | Inpatient (IN) | payer MEDICAID ==
[2019-11-14] MEDS ORDERED: Prochlorperazine 10 MG/2 ML SDV IVPUSH ONE (18:43)
[2019-11-14] MEDS ORDERED: Lactated Ringers 1,000 ML IV ONE (18:43)
[2019-11-14] MEDS ORDERED: diphenhydrAMINE 50 MG/ML SDV IVPUSH ONE (18:44)
--- NOTE | 2019-11-14 18:53 | EDM.PDOC ---
ED HPI GENERAL MEDICAL PROBLEM - General Chief Complaint: Gastrointestinal Problem Stated Complaint: ABD PAIN Time Seen by Provider: 11/14/19 18:35 Source of Information: Reports: Patient, Old Records, RN History Limitations: Reports: No Limitations - History of Present Illness INITIAL COMMENTS - FREE TEXT/NARRATIVE: 19 yo female returns with epigastric pain and nausea/vomiting. No fever. No blood in stool or emesis. Was seen here recently and stated that she was no longer using marijuana. She was presumptively dx with gastritis but is not responding to any of the treatments given. Dr. De La Rosa is her primary care provider. Has been dx'd in the past with both pancreatitis and hyperemesis cannabinoid syndrome. Lipase was normal on her last ER visit. Onset: Unknown/Unsure Duration: Day(s):, Waxing/Waning Location: Reports: Abdomen Quality: Reports: Ache Severity: Moderate Improves with: Reports: None Worsens with: Reports: None Context: Reports: Other (See HPI) Associated Symptoms: Reports: Loss of Appetite, Nausea/Vomiting. 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: Reports: Other (see below) (Zofran ODT, acetaminophen, antacids) - Related Data Allergies Allergy/AdvReac Type Severity Reaction Status Date / Time No Known Allergies Allergy Verified 11/14/19 18:34 Home Meds: Home Meds Citalopram Hydrobromide [Celexa] 40 mg PO DAILY 12/18/18 [History] Spironolactone [Aldactone] 50 mg PO BID 12/18/18 [History] metFORMIN [Glucophage XR] 500 mg PO BEDTIME 12/18/18 [History] Acetaminophen [Tylenol] 1,000 mg PO Q4H PRN 12/22/18 [History] Omeprazole 40 mg PO DAILY 11/12/19 [History] Past Medical History HEENT History: Reports: Impaired Vision, Other (See Below) Other HEENT History: glasses Gastrointestinal History: Reports: Pancreatitis 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 Endocrine/Metabolic History: Reports: Obesity/BMI 30+, Other (See Below) Other Endocrine/Metabolic History: pre diabetic Dermatologic History: Reports: Psoriasis - Past Surgical History Head Surgeries/Procedures: Reports: None HEENT Surgical History: Reports: None Social & Family History - Family History Psychiatric: Reports: Anxiety, Bipolar, Depression, Panic Attack Endocrine/Metabolic: Reports: Diabetes, type II Dermatologic: Reports: Psoriasis - Tobacco Use Smoking Status *Q: Never Smoker - Caffeine Use Caffeine Use: Reports: None - Living Situation & Occupation Living situation: Reports: with Significant Other Occupation: Unemployed (lives with Boyfriend between [place] and [place]. Not working, no children.) ED ROS GENERAL - Review of Systems Review Of Systems: See Below Constitutional: Reports: No Symptoms HEENT: Reports: No Symptoms Respiratory: Reports: No Symptoms Cardiovascular: Reports: No Symptoms Endocrine: Reports: No Symptoms GI/Abdominal: Reports: Abdominal Pain, Decreased Appetite, Nausea, Vomiting. Denies: Black Stool, Bloody Stool, Constipation, Diarrhea, Distension, Hematemesis, Hematochezia, Melena Musculoskeletal: Reports: No Symptoms Skin: Reports: No Symptoms Neurological: Reports: No Symptoms Psychiatric: Reports: No Symptoms ED EXAM, GI/ABD - Physical Exam Exam: See Below Exam Limited By: No Limitations General Appearance: Alert, WD/WN, No Apparent Distress, Obese Eyes: Bilateral: Normal Appearance Ears: Normal External Exam, Normal Canal, Hearing Grossly Normal Nose: Normal Inspection, No Blood Throat/Mouth: Normal Inspection, Normal Lips, Normal Oropharynx, Normal Voice, No Airway Compromise Head: Atraumatic, Normocephalic Neck: Normal Inspection Respiratory/Chest: No Respiratory Distress, Lungs Clear, Normal Breath Sounds Cardiovascular: Regular Rate, Rhythm, No Edema GI/Abdominal Exam: Normal Bowel Sounds, Soft, No Distention, Tender (epigastrium ). No: Non-Tender, Distended, Guarding, Rigid, Rebound Back Exam: Normal Inspection. No: CVA Tenderness (R), CVA Tenderness (L) Extremities: Normal Inspection, Normal Range of Motion, Non-Tender, No Pedal Edema Neurological: Alert, Oriented, CN II-XII Intact, Normal Cognition, No Motor/Sensory Deficits Psychiatric: Normal Affect, Normal Mood Skin Exam: Warm, Dry, Intact, Normal Color, No Rash Course - Vital Signs Text/Narrative:: Dr. Alex Thakkar called @ 1937h Dr. Armendariz called @ 1830h Last Recorded V/S: Last Vital Signs Temp 36.5 C 11/14/19 18:38 Pulse 78 11/14/19 18:38 Resp 16 08/30/20 18:38 BP 141/70 H 11/14/19 18:38 Pulse Ox 98 11/14/19 18:38 - Orders/Labs/Meds Orders: Active Orders 24 hr Category Date Time Status Abdomen Ltd [US] Stat Exams 11/14/19 19:41 Taken Labs: Laboratory Tests 11/14/19 11/14/19 11/14/19 Range/Units 19:00 19:00 20:38 WBC 11.1 H (4.5-11.0) K/uL RBC 4.66 (3.30-5.50) M/uL Hgb 13.8 (12.0-15.0) g/dL Hct 41.6 (36.0-48.0) % MCV 89 (80-98) fL MCH 30 (27-31) pg MCHC 33 (32-36) % Plt Count 331 (150-400) K/uL Sodium 137 L (140-148) mmol/L Potassium 3.7 (3.6-5.2) mmol/L Chloride 100 (100-108) mmol/L Carbon Dioxide 23 (21-32) mmol/L Anion Gap 17.7 H (5.0-14.0) mmol/L BUN 8 (7-18) mg/dL Creatinine 0.9 (0.6-1.0) mg/dL Est Cr Clr Drug Dosing 93.34 mL/min Estimated GFR (MDRD) > 60 (>60) Glucose 96 (74-106) mg/dL Calcium 9.4 (8.5-10.1) mg/dL Total Bilirubin 2.0 H D (0.2-1.0) mg/dL AST 139 H D (15-37) U/L ALT 364 H (12-78) U/L Alkaline Phosphatase 94 (46-116) U/L Total Protein 7.8 (6.4-8.2) g/dL Albumin 4.2 (3.4-5.0) g/dL Globulin 3.6 H (2.3-3.5) g/dL Albumin/Globulin Ratio 1.2 (1.2-2.2) Lipase 173 (73-393) U/L Urine Opiates Screen Negative (NEGATIVE) Ur Oxycodone Screen Negative (NEGATIVE) Urine Methadone Screen Negative (NEGATIVE) Ur Propoxyphene Screen Negative (NEGATIVE) Ur Barbiturates Screen Negative (NEGATIVE) Ur Tricyclics Screen Negative (NEGATIVE) Ur Phencyclidine Scrn Negative (NEGATIVE) Ur Amphetamine Screen Negative (NEGATIVE) U Methamphetamines Scrn Negative (NEGATIVE) Urine MDMA Screen Negative (NEGATIVE) U Benzodiazepines Scrn Negative (NEGATIVE) U Cocaine Metab Screen Negative (NEGATIVE) U Marijuana (THC) Screen Presumptive positive H (NEGATIVE) Meds: Medications Discontinued Medications Generic Name Dose Route Start Last Admin Trade Name [place] PRN Reason Stop Dose Admin Diphenhydramine HCl 50 mg 11/14/19 18:44 11/14/19 19:13 Benadryl IVPUSH 11/14/19 18:45 50 mg ONETIME ONE Administration Hydromorphone HCl 0.5 mg 11/14/19 19:32 11/14/19 19:40 Dilaudid IVPUSH 11/14/19 19:33 0.5 mg ONETIME ONE Administration Lactated Ringer's 1,000 mls @ 1,000 mls/hr 11/14/19 18:43 11/14/19 19:12 Ringers, Lactated IV 11/14/19 19:42 1,000 mls/hr BOLUS ONE Administration Prochlorperazine Edisylate 10 mg 11/14/19 18:43 11/14/19 19:15 Compazine IVPUSH 11/14/19 18:44 10 mg ONETIME ONE Administration - Radiology Interpretation Free Text/Narrative:: GB US-bile duct 0.5 mm Departure - Departure Time of Disposition: 21:16 Disposition: Admitted As Inpatient 66 Condition: Fair Clinical Impression: Choledocholithiasis, Epigastric pain, Marijuana dependence Nausea and vomiting Qualifiers: Vomiting type: unspecified Vomiting Intractability: non-intractable Qualified Code(s): R11.2 - Nausea with vomiting, unspecified - Discharge Information *PRESCRIPTION DRUG MONITORING PROGRAM REVIEWED*: No *COPY OF PRESCRIPTION DRUG MONITORING REPORT IN PATIENT STEVEN: No Referrals: Harper De La Rosa DO [Primary Care Provider] - Forms: ED Department Discharge Sepsis Event Note (ED) - Evaluation Sepsis Screening Result: No Definite Risk - Focused Exam Vital Signs: Vital Signs Temp Pulse Resp BP Pulse Ox 11/14/19 18:38 36.5 C 78 16 141/70 H 98 11/14/19 18:33 36.5 C 78 16 141/70 H 98 - My Orders Last 24 Hours: My Active Orders 11/14/19 19:41 Abdomen Ltd [US] Stat - Assessment/Plan Last 24 Hours: My Active Orders 11/14/19 19:41 Abdomen Ltd [US] Stat
[2019-11-14] MEDS ORDERED: HYDROmorphone 0.5 MG/0.5 ML Syringe IVPUSH ONE (19:32)
--- NOTE | 2019-11-14 21:18 | CRLUS ---
INDICATION: epigastric pain, elevated lfts comparison is a ct from 01-14-2019 INDICATION: Abdominal pain. TECHNIQUE: Ultrasound abdomen limited. Sonographic images of the right upper quadrant were obtained using ruiz-scale and color Doppler images. COMPARISON: CT of the abdomen and pelvis, 01/14/2019. FINDINGS: Liver: Diffuse hepatic steatosis. No masses. No intrahepatic biliary dilatation. Gallbladder: Stones are present in the gallbladder lumen. No gallbladder wall thickening. Negative sonographic Al[place]ga sign. Stones appear nonmobile. Common bile duct: 5 mm. Pancreas: Poorly visualized, secondary to bowel gas. No peripancreatic fluid collection. Right kidney: 10.6 cm. Normal echotexture and cortex. No masses, stones, or hydronephrosis. Vasculature: Proximal abdominal aorta and IVC are normal. Main portal vein appears patent, with normal flow direction. IMPRESSION: 1. Cholelithiasis, without secondary signs for cholecystitis. 2. Normal caliber biliary tree. 3. Diffuse hepatic steatosis. Dictated by Pablo Smith MD @ 11/14/2019 9:16:28 PM Dictated by: Pablo Smith MD @ 11/14/2019 21:16:36 (Electronically Signed)
[2019-11-14] MEDS ORDERED: diphenhydrAMINE 25 MG Cap PO PRN (22:22)
[2019-11-14] MEDS ORDERED: diphenhydrAMINE 50 MG/ML SDV IVPUSH PRN (22:22)
[2019-11-14] MEDS ORDERED: Naloxone 0.4 MG/ML SDV IVPUSH PRN (22:22)
[2019-11-14] MEDS ORDERED: Ondansetron 4 MG/2 ML SDV IVPUSH PRN (22:22)
[2019-11-14] MEDS ORDERED: HYDROmorphone/Normal Saline 15 MG/30 ML PCA IV SCH (22:30)
[2019-11-14] MEDS: Lactated Ringers 1,000 ML IV SCH (23:03)
[2019-11-14] MEDS: Pantoprazole 40 MG Vial IVPUSH SCH (23:03)
--- NOTE | 2019-11-15 06:08 | PN ---
DATE OF SERVICE: 11/15/2019 SUBJECTIVE: A 19-year-old female was admitted with recurrent upper abdominal pain yesterday evening. She reported accompanying nausea and emesis. She does have a previous history of recurrent pancreatitis, though recent confirmatory labs were unremarkable. She has recognized history of previous cannabis and alcohol use with positive urine screens at the time of admission. She has had no hematemesis, diarrhea, melena, or hematochezia. Through the night, she reports pain has diminished. She is resting comfortably with n.p.o. status maintained and IV fluids running to maintain hydration. OBJECTIVE: VITAL SIGNS: Temperature 36.5, pulse 104, blood pressure 104/77, O2 saturation is 95% on room air. LUNGS: Clear. HEART: Regular without murmurs or gallops. ABDOMEN: Soft. No organomegaly. No guarding, rebound, or CVA tenderness. Active sounds are noted. She has mild epigastric tenderness to deep palpation. EXTREMITIES: Warm and pink. Good turgor. Nonjaundiced. LABORATORY DATA: Followup labs this a.m. including lipase, CBC, metabolic and lipid panels are pending. IMPRESSION AND PLAN: Recurrent upper abdominal pain. Consider pancreatitis versus hepatobiliary disease versus gastritis. She will continue with n.p.o. status. IV pantoprazole is provided. She is pending MRCP this morning to exclude the possibility of hepatic or biliary obstructive disease. If unremarkable and lipase remains within normal range, consider EGD to evaluate for potential gastritis. No further change in treatment at the present time. Fredy Armendariz MD /[id number]
--- NOTE | 2019-11-15 08:38 | HP ---
IDENTIFYING DATA: Eva Chowdhury is a 19-year-old single female from [facility]. CHIEF COMPLAINT: Abdominal pain. HISTORY OF PRESENT ILLNESS: Adult female who has a week-long history of recurrent upper abdominal pain with accompanying anorexia, nausea and emesis. She has had no hematemesis, melena, or hematochezia. The pain is predominantly in the upper epigastric area with occasional radiation to the right upper quadrant. She has had no back pain. She finds that ingestion of food including bland foods such as crackers exacerbate symptoms. She is taking water without worsening pain. She does have a previous history of reported pancreatitis with hospitalization in 2019. Presentation by patient's subjective report is similar to the pain noted at that time. She has a previous history of alcohol and drug use, currently abstaining by her report, is not routinely using anti-inflammatory agents. Frequent use of caffeinated beverages in the form of energy drinks. She has had no previous abdominal surgery. Menses of last month was normal on presentation. She has a noted history of polycystic ovary syndrome with pharmacologic management. PAST MEDICAL HISTORY: Surgeries: None. History of polycystic ovary syndrome and anxiety disorder. Previous history of reported hyperemesis cannabinoid syndrome. ALLERGIES: NO NOTED ALLERGIES REPORTED. CURRENT MEDICATIONS: 1. Citalopram 40 mg daily. 2. Metformin 1000 mg daily. 3. Spironolactone 10 mg daily. HABITS: No tobacco use. Denies illicit drug use. No recent alcohol use. Caffeine intake, averages less than 1 caffeinated beverage per day. IMMUNIZATIONS: No recent injections reported by patient. No recent history of COVID exposure. SOCIAL HISTORY: Currently residing with significant other and his mother in their [facility] residence. She is not working outside the household. FAMILY HISTORY: Noncontributory. No other familial history of recent GI illness, coronavirus exposure, chronic abdominal pain, bowel disease, or coagulopathies. REVIEW OF SYSTEMS: NEUROLOGIC: History of anxiety disorder, managed with use of citalopram. No hearing loss. She does wear corrective lenses. No history of stroke, seizures, or focal weakness. CARDIAC: Denies hypertension, diabetes, congenital heart disease, chest pain, palpitations, or syncope. RESPIRATORY: No history of asthma, emphysema, chronic cough, sputum production, or recent URI symptoms. GASTROINTESTINAL: Mid upper abdominal pain with recurrent emesis. No back pain. No lower abdominal discomfort. No previous history of documented cholelithiasis. GENITOURINARY: Sporadic menses secondary to PCOS. No prior pregnancies. No urinary urgency, frequency or dysuria. MUSCULOSKELETAL: Without arthralgias. PHYSICAL EXAMINATION: GENERAL: Appearance is that of an adult female, now appearing in increased state of comfort following administration of IV analgesic therapy. VITAL SIGNS: Initially, temperature 36.5 degrees centigrade, pulse 78, respiratory rate 16, blood pressure 141/70, O2 saturations 98% on room air. HEENT: Hearing is grossly intact with normal canals and TMs. Pupils reactive to light. Sclerae anicteric. No nasal congestion. No oropharyngeal lesions. Mucosa is moist. NECK: Brisk carotid pulses. No bruits, JVD, adenopathy, or thyromegaly. No stridor. LUNGS: Symmetrical, clear, resonant, non-tachypneic. HEART: Regular without murmurs, gallops, or rubs. Normal S1 and S2. ABDOMEN: Obese, soft, nondistended with active bowel sounds. No organomegaly. No guarding, rebound, or referred pain. No CVA tenderness. Moderate tenderness in the epigastrium to deep palpation is noted. Good femoral pulses. No abdominal bruits. GENITOURINARY: Omitted. RECTAL: Omitted. EXTREMITIES: Warm, pink and dry. Good turgor. Brisk capillary refill. Non-diaphoretic. Capillary refill less than 3 seconds. No cyanosis evident. Non-jaundiced. LABORATORY DATA: On admission, WBC 11.1, hemoglobin 13.8, platelet count 331,000. Sodium 137, potassium 3.7, BUN 8, creatinine 0.9, GFR greater than 60. Bilirubin moderately elevated at 2.0, AST 139, ALT 364, alkaline phosphatase within normal range at 94, lipase 173. Urine drug screen positive for THC, otherwise unremarkable. Urine blood alcohol level is pending. Ultrasound of the abdomen revealed evidence of hepatic steatosis and small gallbladder stones without inflammatory changes being evident. No evidence of significant ductal dilatation or biliary duct stone. No other abnormalities reported. IMPRESSION: 1. Recurrent upper abdominal pain. 2. History of recurrent pancreatitis. 3. Hepatic steatosis. 4. History of polycystic ovary syndrome. 5. Previous THC and alcohol use. Patient reports current abstinence with positive THC on urine sample attributed to significant other's use in the household. PLAN: The patient will be admitted for further evaluation. Follow up labs in a.m. including CBC, lipid panel, and general chemistries are requested. MR cholangiopancreatogram is requested in a.m. If unremarkable with no evidence of obstructive hepatobiliary disease is evident, consider need for upper endoscopy to exclude the possibility of gastritic changes. The patient will be maintained n.p.o. through the nighttime with IV fluid hydration, antiemetics p.r.n. and analgesics as required. IV Protonix as gastric protection is also requested. Fredy Armendariz MD /[id number]
--- NOTE | 2019-11-15 10:11 | PN ---
DATE OF SERVICE: 11/15/2019 SUBJECTIVE: Eva is n.p.o. She will be having an MRCP to rule out any biliary stones. She has used her [employer] twice. Afebrile. Last blood pressure was elevated at 122/91. She is reporting less right upper quadrant abdominal pain. On admission, her bilirubin was 20, and this morning it is 1.1. REVIEW OF SYSTEMS: Remainder of review of systems negative for any pertinent positives and negatives. OBJECTIVE: GENERAL: Eva Chowdhury is a pleasant 19-year-old female. VITAL SIGNS: TPR at 0536, 97.3; 80; 16; blood pressure 122/91. HEENT: Negative. NECK: Supple. HEART: Regular rate and rhythm. LUNGS: Clear. ABDOMEN: Soft. Minimal tenderness in the right upper quadrant. EXTREMITIES: Without peripheral edema. NEUROLOGIC: Cranial nerves 2 through 12. PSYCHIATRIC: Mood and affect appropriate. ASSESSMENT: Cholelithiasis. PLAN: 1. Check CBC, CMP, mag, phos in a.m. Check lipase and amylase in a.m. Call Dr. Thakkar when MRCP is done. 2. We will evaluate p.r.n. or in a.m. If MRCP is negative, we will schedule laparoscopic cholecystectomy on 11/16/2019. Angelita Lemos PA-C /[id number]
--- NOTE | 2019-11-15 11:30 | MR ---
Cholangiopancreatography CLINICAL HISTORY: Abdominal pain COMPARISON: Ultrasound abdomen 11/14/2019 TECHNIQUE: Multiple images of the biliary system were obtained. All images were obtained on a 1.5 Liz Siemens unit. FINDINGS: No hepatic mass or biliary dilatation is identified. There is a low branching of the right hepatic radicles. Though not well seen the cystic duct appears to join the right hepatic radicle. Liver parenchyma There are some filling defects in the dependent portion the gallbladder consistent with small stones. Common hepatic duct measures 6 mm. Intrapancreatic portion of the common bile duct measures 9 mm. The pancreas appears free of mass or inflammatory change. There is no ductal dilatation. There is a relatively normal signal throughout when compared to spleen on multiple spot sequences. IMPRESSION: Anatomic variant with low branching of the right and left hepatic radical Cholelithiasis with no common duct stone identified. Borderline dilatation of the common bile without obvious stone or stricture
[2019-11-15] MEDS: Lactated Ringers 1,000 ML IV SCH ×2 (13:14→19:55)
[2019-11-15] MEDS: Pantoprazole 40 MG Vial IVPUSH SCH (21:53)
[2019-11-16] MEDS ORDERED: Bupivacaine 0.5%/EPINEPHrine 1:200,000 50 ML MDV ONE (06:50)
[2019-11-16] MEDS: Lactated Ringers 1,000 ML IV SCH ×2 (09:04→19:31)
[2019-11-16] MEDS ORDERED: Ketamine 500 MG/5 ML MDV IV SCH (12:00)
[2019-11-16] MEDS ORDERED: cefOXitin 2 GM in Sodium Chloride 0.9% 50 ML IV ONE (12:00)
[2019-11-16] MEDS ORDERED: Dexamethasone 4 MG/ML SDV ONE (12:24)
[2019-11-16] MEDS ORDERED: Glycopyrrolate 0.2 MG/ML 5 ML MDV ONE (12:24)
[2019-11-16] MEDS ORDERED: Neostigmine Methylsulfate 1 MG/ML 5 ML Syringe ONE (12:24)
[2019-11-16] MEDS ORDERED: Rocuronium 50 MG/5 ML Vial ONE (12:24)
[2019-11-16] MEDS ORDERED: fentaNYL 250 MCG/5 ML SDV ONE ×2 (12:24→15:59)
[2019-11-16] MEDS ORDERED: Propofol 200 MG/20 ML SDV ONE (12:24)
[2019-11-16] MEDS ORDERED: Ondansetron 4 MG/2 ML SDV ONE (12:24)
[2019-11-16] MEDS ORDERED: Succinylcholine 200 MG/10 ML MDV ONE (12:24)
[2019-11-16] MEDS ORDERED: cefOXitin 2 GM Vial ONE (15:51)
[2019-11-16] MEDS ORDERED: Lactated Ringers 1,000 ML ONE (15:59)
[2019-11-16] MEDS ORDERED: Labetalol 20 MG/4 ML Syringe ONE (16:46)
[2019-11-16] MEDS ORDERED: Dextrose 5%-Lactated Ringers 1,000 ML IV SCH (20:30)
[2019-11-16] MEDS: Spironolactone 25 MG Tab PO SCH (21:39)
[2019-11-16] MEDS: Pantoprazole 40 MG Vial IVPUSH SCH (21:39)
[2019-11-16] MEDS: HYDROmorphone 0.5 MG/0.5 ML Syringe IVPUSH PRN (21:43)
[2019-11-16] MEDS: metFORMIN 500 MG Tab PO SCH (21:49)
[2019-11-16] MEDS: HYDROmorphone 1 MG/ML Syringe IV PRN (23:48)
[2019-11-17] MEDS: cefOXitin 2 GM in Sodium Chloride 0.9% 50 ML IV SCH ×4 (02:07→19:31)
[2019-11-17] MEDS: HYDROmorphone 1 MG/ML Syringe IV PRN (02:08)
[2019-11-17] MEDS: Acetaminophen/HYDROcodone 325-5 MG Tab PO PRN ×5 (05:00→21:14)
[2019-11-17] MEDS: metFORMIN 500 MG Tab PO SCH ×2 (08:55→21:15)
[2019-11-17] MEDS: Spironolactone 25 MG Tab PO SCH ×2 (08:55→21:15)
[2019-11-17] MEDS: Citalopram 20 MG Tab PO SCH (08:56)
[2019-11-17] MEDS: Ondansetron 4 MG/2 ML SDV IVPUSH PRN ×2 (09:06→21:49)
[2019-11-17] MEDS: HYDROmorphone 0.5 MG/0.5 ML Syringe IVPUSH PRN (09:33)
--- NOTE | 2019-11-17 12:44 | PN ---
DATE OF SERVICE: 11/17/2019 HISTORY OF PRESENT ILLNESS: Eva is postoperative day #1. Pain is controlled. She has been up ambulating. Afebrile. LABORATORY DATA: Labs this morning revealed an elevation in her bilirubin up to 2.1. REVIEW OF SYSTEMS: Remainder of review of systems negative for any pertinent positives and negatives. OBJECTIVE: GENERAL: Eva Chowdhury is a pleasant 19-year-old female. She is alert and orientated. VITAL SIGNS: TPR at 0700 is 96.7, 87, 18, blood pressure 119/66. HEENT: Negative. NECK: Supple. HEART: Regular rate and rhythm. LUNGS: Clear. ABDOMEN: Dressing is dry and intact. Abdominal binder is on. EXTREMITIES: Without peripheral edema. ASSESSMENT: 1. Laparoscopic cholecystectomy. 2. Incarcerated umbilical hernia. POSTOPERATIVE DIAGNOSES: Chronic cholecystitis, cholelithiasis, and umbilical hernia. Date of procedure 11/16/2019. Surgeon: Walter Thakkar MD. PLAN: 1. Dressing off. May shower. 2. Check CMP in a.m. 3. To convert IV to saline lock. 4. Continue use of incentive spirometer. 5. We will evaluate p.r.n. or in a.m. Angelita Lemos PA-C /[id number]
[2019-11-17] MEDS ORDERED: Sodium Chloride 0.9% 10 ML Syringe IV PRN (16:00)
[2019-11-17] MEDS: Pantoprazole 40 MG Vial IVPUSH SCH (21:16)
[2019-11-18] MEDS: Ondansetron 4 MG Tab.DIS PO PRN (01:38)
[2019-11-18] MEDS: cefOXitin 2 GM in Sodium Chloride 0.9% 50 ML IV SCH ×4 (01:38→19:28)
[2019-11-18] MEDS: Acetaminophen/HYDROcodone 325-5 MG Tab PO PRN ×4 (05:59→20:16)
[2019-11-18] MEDS: HYDROmorphone 1 MG/ML Syringe IV PRN (07:50)
[2019-11-18] MEDS ORDERED: Ondansetron 4 MG/2 ML SDV IVPUSH ONE (08:00)
--- NOTE | 2019-11-18 08:31 | PN ---
DATE OF SERVICE: 11/18/2019 SUBJECTIVE: Eva had a cholecystectomy on 11/17/2019. She continues to have pain in the right upper quadrant. Her bilirubin this a.m. is 3.3, AST 180, and ALT is 384. She is scheduled to have an MRCP this morning stat. Vital signs have been stable, afebrile. REVIEW OF SYSTEMS: Remainder of review of systems negative for any pertinent positives and negatives. OBJECTIVE: GENERAL: Eva Chowdhury is a pleasant 19-year-old female. VITAL SIGNS: TPR at 01:37 is 96.5; 80; 18; blood pressure 126/75. HEENT: Negative. NECK: Supple. HEART: Regular rate and rhythm. LUNGS: Clear. ABDOMEN: Tender in right upper quadrant and mid upper quadrant. Abdominal binder is on. EXTREMITIES: Without peripheral edema. ASSESSMENT: Elevated bilirubin 3.3. Laparoscopic cholecystectomy and repair of incarcerated umbilical hernia for chronic cholecystitis, cholelithiasis, and umbilical hernia. Date of procedure: 11/16/2019. Surgeon: Walter Thakkar MD. PLAN: 1. Call Walter Thakkar MD when MRCP is completed. 2. Give IV Dilaudid 0.5 mg IV on-call to MRCP. 3. Zofran 4 mg IV 1 time on-call to MRCP. 4. We will evaluate p.r.n. pending results of MRCP. Angelita Lemos PA-C /[id number]
[2019-11-18] MEDS: Citalopram 20 MG Tab PO SCH (09:11)
[2019-11-18] MEDS: metFORMIN 500 MG Tab PO SCH (09:11)
[2019-11-18] MEDS: Spironolactone 25 MG Tab PO SCH ×2 (09:12→22:34)
[2019-11-18] MEDS: HYDROmorphone 0.5 MG/0.5 ML Syringe IVPUSH PRN (09:48)
--- NOTE | 2019-11-18 09:59 | MR ---
Cholangiopancreatography CLINICAL HISTORY: Increased bilirubin levels COMPARISON: MRCP 11/15/2019 TECHNIQUE: Multiple images of the biliary system were obtained. All images were obtained on a 1.5 Liz Siemens unit. FINDINGS: Patient is status post recent cholecystectomy. There is free fluid in the noam hepatis and peripancreatic spaces. This is suspicious for bile leak. Postoperative bleeding is felt less likely. Postoperative residual fluid is also felt less likely. There is no significant intrahepatic ductal dilatation. The common bile duct measures 9 mm distally which is unchanged from prior study. As previously stated there is a low bile duct confluence. Cystic duct is not identified on the current study. IMPRESSION: Status post recent cholecystectomy Fluid in the noam hepatis and peripancreatic regions and peritoneal cavity are suspect for bile leak or less likely postoperative hemorrhage. Biliary anatomic variant described above. No change in CBD size since preoperative study
[2019-11-18] MEDS: Pantoprazole 40 MG Vial IVPUSH SCH (22:35)
[2019-11-19] MEDS: Acetaminophen/HYDROcodone 325-5 MG Tab PO PRN ×5 (01:30→19:37)
[2019-11-19] MEDS: cefOXitin 2 GM in Sodium Chloride 0.9% 50 ML IV SCH ×4 (02:19→19:38)
[2019-11-19] MEDS ORDERED: Bisacodyl 5 MG Tab PO SCH (09:00)
[2019-11-19] MEDS: Docusate Sodium 100 MG Cap PO SCH ×2 (09:46→21:36)
[2019-11-19] MEDS: Spironolactone 25 MG Tab PO SCH ×2 (09:46→21:36)
[2019-11-19] MEDS: Citalopram 20 MG Tab PO SCH (09:47)
[2019-11-19] MEDS: Dextrose 5%-Lactated Ringers 1,000 ML IV SCH ×2 (09:50→17:23)
[2019-11-19] MEDS: Bisacodyl 5 MG Tab PO SCH ×2 (09:54→21:36)
--- NOTE | 2019-11-19 15:29 | PN ---
DATE OF SERVICE: 11/19/2019 The patient is status post laparoscopic cholecystectomy along with repair of incarcerated umbilical hernia on 11/16/2019. She was noted yesterday having bilirubin up to 3.3. MRCP was done, which showed no evident problems within the biliary tree. KRISTEN drain remains non- bilious, now is down to 1.3, although her amylase and lipase have now bumped up to 752 and 219 respectively indicating she probably passed a stone sometime in the last 24 to 36 hours and had development of some recurrent pancreatitis with passage of that stone. Given that, we will restart her IV at maintenance rate, and we will go down to sips of clear liquids. We will recheck laboratories in the morning. Will continue to get some bowel stimulation as well. Once her amylase and lipase have gone down to normal or close to normal, she can be started back on a more regular diet and subsequently discharged home. She remains on oral pain medications at this time. Walter Thakkar MD /[id number]
--- NOTE | 2019-11-19 16:08 | OR ---
DATE OF PROCEDURE: 11/16/2019 SURGEON: Walter Thakkar MD The patient's MRCP yesterday showed clearance of the bile duct. Her bilirubin on admission was 2.0, 1.1 yesterday, and 0.8 today. She most likely has cleared a stone and I will proceed with laparoscopic cholecystectomy later today. Potential risks of the procedure including bleeding, infection, injury to underlying viscera, common bile duct resulting in additional need for procedures were gone over, and the patient wishes to proceed surgically . Walter Thakkar MD /[id number]
[2019-11-19] MEDS: Pantoprazole 40 MG Tab.CR PO SCH (21:36)
[2019-11-19] MEDS: Ondansetron 4 MG Tab.DIS PO PRN (21:45)
[2019-11-20] MEDS: cefOXitin 2 GM in Sodium Chloride 0.9% 50 ML IV SCH ×4 (02:36→19:42)
[2019-11-20] MEDS: Acetaminophen/HYDROcodone 325-5 MG Tab PO PRN ×5 (02:41→22:07)
[2019-11-20] MEDS: Dextrose 5%-Lactated Ringers 1,000 ML IV SCH (04:26)
[2019-11-20] MEDS: Citalopram 20 MG Tab PO SCH (08:53)
[2019-11-20] MEDS: Docusate Sodium 100 MG Cap PO SCH ×2 (08:53→21:10)
[2019-11-20] MEDS: Bisacodyl 5 MG Tab PO SCH ×2 (08:53→21:10)
[2019-11-20] MEDS: Spironolactone 25 MG Tab PO SCH ×2 (08:53→21:09)
[2019-11-20] MEDS ORDERED: Enoxaparin 40 MG/0.4 ML Syringe SUBCUT SCH (16:00)
[2019-11-20] MEDS: Pantoprazole 40 MG Tab.CR PO SCH (21:10)
[2019-11-21] MEDS: Acetaminophen/HYDROcodone 325-5 MG Tab PO PRN ×3 (02:05→09:57)
[2019-11-21] MEDS: Spironolactone 25 MG Tab PO SCH (08:12)
[2019-11-21] MEDS: Citalopram 20 MG Tab PO SCH (08:12)
[2019-11-21] MEDS: Docusate Sodium 100 MG Cap PO SCH (08:12)
[2019-11-21] MEDS: Bisacodyl 5 MG Tab PO SCH (08:12)
--- NOTE | 2019-11-22 10:10 | PN ---
DATE OF SERVICE: 11/21/2019 SUBJECTIVE: The patient is doing great today. Pain is very well controlled. No nausea, vomiting, shortness of breath or chest pain. She is having bowel movements. Afebrile per nursing report. OBJECTIVE: CARDIOVASCULAR: Regular rhythm and rate. RESPIRATORY: Lungs are clear to consultation bilaterally. SKIN: Incisions are healing well. ASSESSMENT AND PLAN: Status post cholecystectomy and pancreatitis. PLAN: The pancreatic enzymes have essentially returned to normal per nursing report. The patient is doing well as described above. She will be discharged today. Please see discharge orders for further details. Pablo Duggan MD /[id number]
--- NOTE | 2019-11-23 07:39 | OR ---
DATE OF PROCEDURE: 11/16/2019 SURGEON: Walter Thakkar MD PREOPERATIVE DIAGNOSES: Chronic cholecystitis and cholelithiasis status post recent gallstone pancreatitis. POSTOPERATIVE DIAGNOSES: 1. Chronic cholecystitis and cholelithiasis status post recent gallstone pancreatitis. 2. Incarcerated umbilical hernia. OPERATIVE PROCEDURES: Diagnostic laparoscopy with; 1. Cholecystectomy (05372). 2. Repair of incarcerated umbilical hernia (83977). ANESTHESIA: General. INDICATION FOR PROCEDURE: This is a 19-year-old presenting with some upper abdominal pain. The patient did have a bilirubin of 2.0 range and history of previous episodes of pancreatitis for which underlying cause was never identified. Ultrasound now shows small stones within the gallbladder making the overall picture highly likely that she has been passing some small common bile duct stone, bilirubin today it is down to 1.1, likely she has passed the stone presently. Plan to proceed with laparoscopic cholecystectomy. Potential risks of the procedure including bleeding, infection, injury to underlying viscera, possible migration of stones in the common bile duct requiring additional procedures for correction were reviewed, and the patient wishes to proceed. DETAILS OF PROCEDURE: The patient was taken to the operating room and placed in a supine position. After general endotracheal anesthesia was induced, the abdomen was prepped and draped. Transverse incision in the epigastrium was then made and peritoneal cavity entered under direct vision with an Optiview trocar, inflated to 15 mmHg pressure of CO2. Laparoscope was then reinserted. No underlying trocar insertion site injuries were seen. The scope then passed down toward the umbilicus. The patient was noted to have umbilical hernia that appeared to have some incarcerated preperitoneal fat. Incision just below the umbilicus was made and then the 12-mm trocar passed through the center of the hernia to facilitate subsequent repair, and a single 5-mm trocar was then placed in the right subcostal area. The upper abdomen was then examined. The patient was noted to have a quite distended and edematous gallbladder. Initial dissection began on the gallbladder neck with Harmonic Scalpel, continued around the gallbladder neck and cystic duct junction. There was quite bit of somewhat unusual angulation of the gallbladder neck and the cystic artery was then initially easily identified. Given this, we then dissected the gallbladder off the gallbladder bed from above down using Harmonic Scalpel. This then allowed straightening out of the common bile duct, cystic duct junction and identification of the artery. The cystic duct was fairly wide probably still taking passage of stones and was divided with MATTY segal load. The artery was then divided with clips, 3 times proximally and once distally and the remaining few attachments of the gallbladder neck were then divided and the specimen delivered from the field. As expected, it contained numerous small stones. The area of dissection was inspected and there was quite a bit of edema in the area. Given this, Sudheer-Donovan drain was then placed in the left lateral trocar site and placed into the gallbladder bed. Camera was brought back up to the epigastric port, and upon removal of the umbilical trocar, the hernia was then repaired with placement of a laparoscopic suture passers secured to the abdominal wall with 0 Vicryl sutures closing the defect with transverse orientation. Remaining trocars were removed and peritoneal cavity deflated. The fascia at the epigastric site was closed with 0 Vicryl stitch and the skin with 4-0 Vicryl skin stitch. Prior to closure, bilateral transversus abdominis plane blocks were then placed and the incision was anesthetized with 1% lidocaine mixed with Marcaine. The patient taken to the recovery room in satisfactory condition. There were no evident complications. Walter Thakkar MD /[id number]
--- NOTE | 2019-11-24 08:23 | DISCH ---
FINAL DIAGNOSIS: Chronic cholecystitis with cholelithiasis, status post gallstone pancreatitis. POSTOPERATIVE DIAGNOSES: 1. Probable postoperative choledocholithiasis, spontaneously passing with resultant mild postoperative pancreatitis. 2. Umbilical hernia. 3. History of polycystic ovary syndrome. 4. History of anxiety and depression. 5. History of prediabetic status. PROCEDURES: That were done on 11/15, diagnostic laparoscopy with: 1. Cholecystectomy. 2. Repair of incarcerated umbilical hernia. SUMMARY: This is a 19-year-old female, presenting with some upper abdominal pain. She has a history of previous pancreatitis. This workup, she was noted to have some cholelithiasis and also on admission was noted to have a bilirubin in the 2 range. She was admitted overnight and subsequently underwent a laparoscopic cholecystectomy on 11/15. On the date of the operation, the bilirubin got down to 1.3. Postoperative day #1, she was feeling somewhat ill and it was noted that she had a bilirubin in the 3 range. Subsequent MRCP was obtained which showed no evident filling defect at that time, and otherwise no defects within the biliary tree per se. She was observed overnight, the bilirubin normalized, but on the next day, she was noted to have significant elevated lipase and amylase with the picture likely being related to passage of the stone causing a recurrence of the pancreatitis. This resolved fairly quickly after the patient was put on bowel rest and was subsequently discharged home with normalization of her clinical exam and laboratory findings. She will be discharged home with her usual medications plus [place] 5/325 1 tablet q.6 hours p.r.n. pain #10 and she will be following up with Angelita Lemos, [facility] on 11/28.
--- NOTE | 2019-12-17 08:29 | CONS ---
DATE OF SERVICE: 11/20/2019 REFERRING PHYSICIAN: Walter Thakkar MD CONSULTING PHYSICIAN: Pablo Duggan MD REASON FOR CONSULTATION: Evaluation after cholecystectomy. HISTORY OF PRESENT ILLNESS: This is a 19-year-old female who on 11/16/2019 underwent diagnostic laparoscopy with cholecystectomy and repair of incarcerated umbilical hernia. The patient has been hospitalized. She has a bilirubin which is elevated at 3.3. She did have an MRCP which did not show any abnormalities. The patient has Sudheer-Donovan drains still placed. She also has elevation of amylase and lipase concerning for pancreatitis. Her pain is 1 to 2/10 and is intermittent. PAST MEDICAL HISTORY: Polycystic ovarian syndrome, anxiety disorder, type 2 diabetes along with probable high blood pressure. SOCIAL HISTORY: She is not a smoker. FAMILY HISTORY: Noncontributory. REVIEW OF SYSTEMS: GENERAL: The patient is appropriate for condition. CARDIOVASCULAR: No history of myocardial infarction. RESPIRATORY: No recent COVID exposure. GASTROINTESTINAL: As above. GENITOURINARY: No dysuria. NEUROLOGICAL: No symptoms. PSYCHIATRIC: History of anxiety. The remainder of review of systems is reviewed and negative. PHYSICAL EXAMINATION: GENERAL: The patient is resting comfortably. VITAL SIGNS: Temperature 95.1, blood pressure 115/61, pulse 66, respirations 16, 97% on room air. HEENT: Pupils are equal. NECK: Supple. LUNGS: Clear. CARDIOVASCULAR: Regular rhythm and rate. RESPIRATORY: Lungs clear to auscultation bilaterally. Incision is healing well. EXTREMITIES: Full range of motion. NEUROLOGIC: Oriented x3. PSYCHIATRIC: No gross depression. LABORATORY RESULTS: AST is 35, ALT is 184. Total bilirubin is normal. I did review the imaging, MRCP on 11/18/2019 showed concern for bile leak. ASSESSMENT AND PLAN: Continued drainage at this time. The patient continues to improve. Labs continue to improve. No signs of infection. Pablo Duggan MD /[id number]
== END 2019-11-21 11:15 | disposition home or self-care (01) | DRG 417 ==
LOC: JP.ED 18:09 → JP.MS 22:10
PROVIDERS: ADMIT Family Medicine; ATTEND Surgery
PROC: 0FT44ZZ Resection of Gallbladder, Percutaneous Endoscopic Approach (ICD-10-PCS; principal; 2019-11-16)
PROC: 0WQF4ZZ Repair Abdominal Wall, Percutaneous Endoscopic Approach (ICD-10-PCS; 2019-11-16)
DX: K80.10 Calculus of gallbladder with chronic cholecystitis without obstruction (principal); K85.10 Biliary acute pancreatitis without necrosis or infection; K42.0 Umbilical hernia with obstruction, without gangrene; K80.50 Calculus of bile duct without cholangitis or cholecystitis without obstruction; E28.2 Polycystic ovarian syndrome; F41.9 Anxiety disorder, unspecified; F32.9 Major depressive disorder, single episode, unspecified; H54.7 Unspecified visual loss; E66.9 Obesity, unspecified; L40.9 Psoriasis, unspecified; R73.03 Prediabetes; K76.0 Fatty (change of) liver, not elsewhere classified; Z88.8 Allergy status to other drugs, medicaments and biological substances; Z79.84 Long term (current) use of oral hypoglycemic drugs; Z79.899 Other long term (current) drug therapy; Z68.37 Body mass index [BMI] 37.0-37.9, adult; Z20.828 Contact with and (suspected) exposure to other viral communicable diseases
CPT/HCPCS: 36415; 74181; 74181-26; 76705; 80053; 80061; 80305-QW; 80307; 82150; 82247; 83690; 83735; 84075; 84100; 85027; 88304; 94762; 96361; 96374; 96375; 99285; 99285-25; A9270-GY; C9113; J0171; J0330; J0694; J0780; J1100; J1170; J1200; J1650; J2405; J2704; J2710; J2795; J3010; J3490; J7050; J7120; J7121; U0002